=== PATIENT | male | born 1965 ===

== ENCOUNTER 2018-01-21 02:30 | Inpatient (IN) | payer OTHER ==
[2018-01-21 02:31] VITALS: BMI 32.3
[2018-01-21] MEDS ORDERED: Sodium Chloride 0.9% 1,000 ML IV ONE ×2 (02:54→09:31)
--- NOTE | 2018-01-21 02:54 | C.PDOC ---
History Of Present Illness The patient presents to the ED for evaluation of increasing pain and swelling to his left foot and ambulatory dysfunction for the past week. Patient states he stepped on a nail while at work, and has been taking Augmentin and Tramadol. Patient reports he is unable to bear weight to the area. Patient denies fever, chills or purulent material from area. Time Seen by Provider: 01/21/18 02:53 Chief Complaint (Nursing): Lower Extremity Problem/Injury History Per: Patient History/Exam Limitations: no limitations Onset/Duration Of Symptoms: Days Current Symptoms Are (Timing): Still Present Severity: Severe Pain Scale Rating Of: 6 Recent travel outside of the [place]: No Additional History Per: Patient - Ankle/Foot Description Of Injury: Other (stepped on nail ) Past Medical History Reviewed: Historical Data, Nursing Documentation, Vital Signs Vital Signs: Last Vital Signs Temp 98 F 01/21/18 02:47 Pulse 88 01/21/18 02:47 Resp 20 01/21/18 02:47 BP 133/90 01/21/18 02:47 Pulse Ox 97 01/21/18 03:42 - Medical History PMH: No Chronic Diseases Surgical History: No Surg Hx Family History: States: Unknown Family Hx - Social History Hx Alcohol Use: No Hx Substance Use: No - Immunization History Hx Tetanus Toxoid Vaccination: Yes Hx Influenza Vaccination: No Hx Pneumococcal Vaccination: No Review Of Systems Constitutional: Negative for: Fever, Chills Gastrointestinal: Negative for: Nausea Musculoskeletal: Positive for: Foot Pain (left) Skin: Negative for: Rash, Lesions, Jaundice, Bruising, Other (purulent drainage ) Neurological: Negative for: Weakness Psych: Negative for: Anxiety Physical Exam - Physical Exam Appears: Non-toxic, No Acute Distress Skin: Warm, Dry Oral Mucosa: Moist Chest: Symmetrical Cardiovascular: Rhythm Regular Respiratory: No Rales, No Rhonchi, No Wheezing Extremity: Normal ROM, Capillary Refill (less than 2 seconds ), Other (swelling , tenderness, warmth, and mild erythema to base of left great toe, plantar region. ) Extremity: Left: Bony Point Tenderness (great toe), Unable To Bear Weight Pulses: Left Dorsalis Pedis: Normal, Right Dorsalis Pedis: Normal Neurological/Psych: Oriented x3, Normal Speech Gait: With Assistance ED Course And Treatment - Laboratory Results Result Diagrams: 01/21/18 03:22 01/21/18 03:22 O2 Sat by Pulse Oximetry: 97 (on RA) Pulse Ox Interpretation: Normal Progress Note: Bloodwork, urinalysis, CT lower extremity ordered and reviewed. IV Fluids and abx given. spoke with podiatry resident - will come and see the pt in the ed Disposition Discussed With : Isaac Sharif Comment: accepted the pt on his service and took over the care at 6:37AM Doctor Will See Patient In The: ED Counseled Patient/Family Regarding: Studies Performed, Diagnosis - Disposition Referrals: Non [facility] Provider, [Primary Care Provider] - Disposition: HOSPITALIZED Disposition Time: 02:54 Condition: FAIR Forms: [facility] (Bulgarian) - POA Present On Arrival: Falls Or Trauma, Poor Glycemic Control - Clinical Impression Clinical Impression: Cellulitis of foot, Abscess of left great toe - Scribe Statement The provider has reviewed the documentation as recorded by the Scribe (Jolanta Infante) Provider Attestation: All medical record entries made by the Scribe were at my direction and personally dictated by me. I have reviewed the chart and agree that the record accurately reflects my personal performance of the history, physical exam, medical decision making, and the department course for this patient. I have also personally directed, reviewed, and agree with the discharge instructions and disposition. Decision To Admit - Pt Status Changed To: Hospital Disposition Of: Inpatient - Admit Certification Admit to Inpatient:: After my assessment, the patient will require hospitalization for at least two midnights. This is because of the severity of symptoms shown, intensity of services needed, and/or the medical risk in this patient being treated as an outpatient. - InPatient: Physician Admission Certification: I certify that this patient requires 2 or more midnights of care for the following reason:: After my assessment, the patient will require hospitalization for at least two midnights. This is because of the severity of symptoms shown, intensity of services needed, and/or the medical risk in this patient being treated as an outpatient. - . Bed Request Type: Regular Admitting Physician: Isaac Sharif Patient Diagnosis: Cellulitis of foot, Abscess of left great toe
[2018-01-21 03:26] LABS: BASO # 0.1 K/uL (0.0-0.2); BASO % 0.9 % (0.0-2.0); EOS # 0.4 K/uL (0.0-0.7); EOS % 3.2 % (0.0-4.0); HEMOGLOBIN 13.6 g/dL (12.0-18.0); LYMPH # 2.9 K/uL (1.0-4.3); LYMPH % 21.7 % (20.0-40.0); MEAN CORPUSCULAR HEMOGLOBIN 29.7 pg (27.0-31.0); MEAN CORPUSCULAR HGB CONC 34.5 g/dL (33.0-37.0); MEAN PLATELET VOLUME 8.2 fL (7.2-11.7); MONO # 0.9 K/uL (0.0-0.8); MONO % 6.8 % (0.0-10.0); NEUT # 8.9 K/uL (1.8-7.0); NEUT % 67.4 % (50.0-75.0); RBC 4.58 Mil/uL (4.40-5.90); RED CELL DISTRIBUTION WIDTH 13.3 % (11.5-14.5); WHITE BLOOD COUNT 13.2 K/uL (4.8-10.8)
[2018-01-21 03:34] LABS: INR 1.2; PROTHROMBIN TIME 12.9 SECONDS (9.7-12.2)
[2018-01-21 03:48] LABS: ALB/GLOB RATIO 1.3 (1.0-2.1); ALBUMIN 4.7 g/dL (3.5-5.0); ALT/SGPT 40 U/L (21-72); AST/SGOT 24 U/L (17-59); BLOOD UREA NITROGEN 19 mg/dL (9-20); CALCIUM 9.5 mg/dl (8.6-10.4); GFR AFRICAN-AMERICAN > 60; GFR NON-AFRICAN AMERICAN > 60
[2018-01-21 03:52] LABS: VENOUS BLOOD GAS BASE EXCESS 0.3 mmol/L (0.0-2.0); VENOUS BLOOD GAS PCO2 42 mmHg (40-60); VENOUS BLOOD GAS PO2 44 mm/Hg (30-55); VENOUS BLOOD PH 7.39 (7.32-7.43)
[2018-01-21 04:07] LABS: SQUAMOUS EPITHIAL < 1 /hpf (0-5); URINE BILIRUBIN NEGATIVE (NEGATIVE); URINE BLOOD NEGATIVE (NEGATIVE); URINE CLARITY Clear (Clear); URINE COLOR Yellow (YELLOW); URINE GLUCOSE (UA) NORMAL (Normal); URINE LEUKOCYTE ESTERASE NEG Leu/uL (Negative); URINE PROTEIN NEGATIVE (NEGATIVE); URINE UROBILINOGEN NORMAL mg/dL (0.2-1.0)
[2018-01-21] MEDS ORDERED: Piperacillin/Tazobact 3.375 gm 100 ML IVPB STA (06:25)
[2018-01-21] MEDS ORDERED: Vancomycin 1 gm/NS 200 ml 1 GM/200 ML BAG IVPB STA (06:28)
[2018-01-21] MEDS ORDERED: Piperacill/Tazo 3.375gm in Dex 3.375 GM/50 ML BAG IVPB STA (06:29)
[2018-01-21] MEDS ORDERED: Vancomycin 1 GM 1 GM/250 ML BAG IVPB SCH (06:30)
--- NOTE | 2018-01-21 07:14 | CP.PCM.CON ---
History of Present Illness - History of Present Illness History of Present Illness: 52 y/o male with no significant PMHx seen at bedside today in ED for left foot redness and swelling with pain to the big toe joint. He states that 10 days ago he stepped on a nail. Admits to going to an urgent care facility 2 days after, where he was prescribed Augmentin and Toradol. States he took these medications but has not noticed improvement. States that the nail was never stuck inside his foot, just pierced the bottom of it. Since then, denies noting any pus from the foot or any other openings. Says that the wound area healed, but he has had persistent swelling and pain. Denies F/C/N/V/CP/SOB PSH: denies ALL: denies SocHx: social beer drinker; denies cigarette or drug use Review of Systems - Review of Systems All systems: reviewed and no additional remarkable complaints except (per HPI) Past Patient History - Infectious Disease Hx of Infectious Diseases: None - Past Social History Smoking Status: Never Smoked - PSYCHIATRIC Hx Substance Use: No - SURGICAL HISTORY Hx Surgeries: Yes Other/Comment: r ankle repair - ANESTHESIA Hx Anesthesia: Yes Hx Anesthesia Reactions: No Meds Allergies/Adverse Reactions: Allergies Allergy/AdvReac Type Severity Reaction Status Date / Time No Known Allergies Allergy Verified 01/21/18 02:45 - Medications Medications: Current Medications Vancomycin/Sodium Chloride (Vancomycin 1 Gm/Ns 200 Ml) 1 gm in 200 mls @ 166.667 mls/hr IVPB STAT STA PRN Reason: Protocol Stop: 01/21/18 07:39 Last Admin: 01/21/18 06:57 Dose: 166.667 mls/hr Physical Exam - Constitutional Appears: Well, Non-toxic, No Acute Distress - Extremities Exam Additional comments: Left lower extremity focused exam: Vasc: DP/PT pulses 2/4. Temperature gradient warm to warm. CFT < 3 sec to all digits. Nonpitting pedal edema noted to entirety of forefoot, increased around 1st MPJ Derm: Diffuse erythema to medial aspect of forefoot surrounding 1st MPJ. Fully healed puncture wound noted to plantar aspect of 1st MPJ. No open lesions, no ecchymosis, no drainage Neuro: Protective sensation grossly intact Ortho: Moderate tenderness to palpation of left foot 1st MPJ and hallux. Tenderness elicited upon mobilization and distraction of 1st MPJ. - Neurological Exam Neurological exam: Alert, Oriented x3 - Psychiatric Exam Psychiatric exam: Normal Affect, Normal Mood Results - Vital Signs Recent Vital Signs: Last Vital Signs Temp 98 F 01/21/18 02:47 Pulse 88 01/21/18 02:47 Resp 20 01/21/18 02:47 BP 133/90 01/21/18 02:47 Pulse Ox 97 01/21/18 06:40 - Labs Result Diagrams: 01/21/18 03:22 01/21/18 03:22 Labs: Laboratory Results - last 24 hr 01/21/18 01/21/18 01/21/18 03:22 03:22 03:22 WBC 13.2 H RBC 4.58 Hgb 13.6 Hct 39.4 MCV 86.0 MCH 29.7 MCHC 34.5 RDW 13.3 Plt Count 366 MPV 8.2 Neut % (Auto) 67.4 Lymph % (Auto) 21.7 [place] % (Auto) 6.8 Eos % (Auto) 3.2 Baso % (Auto) 0.9 Neut # (Auto) 8.9 H Lymph # (Auto) 2.9 [place] # (Auto) 0.9 H Eos # (Auto) 0.4 Baso # (Auto) 0.1 PT 12.9 H INR 1.2 APTT 35 H pO2 VBG pH VBG pCO2 VBG HCO3 VBG Total CO2 VBG O2 Sat (Calc) VBG Base Excess VBG Potassium Glucose Lactate Sodium 144 Potassium 3.8 Chloride 106 Carbon Dioxide 26 Anion Gap 17 BUN 19 Creatinine 1.0 Est GFR ( Amer) > 60 Est GFR (Non-Af Amer) > 60 Random Glucose 120 H Calcium 9.5 Total Bilirubin 0.4 AST 24 ALT 40 Alkaline Phosphatase 108 Total Protein 8.2 Albumin 4.7 Globulin 3.5 Albumin/Globulin Ratio 1.3 Venous Blood Potassium Urine Color Urine Clarity Urine pH Ur Specific [place] Urine Protein Urine Glucose (UA) Urine Ketones Urine Blood Urine Nitrate Urine Bilirubin Urine Urobilinogen Ur Leukocyte Esterase Urine WBC (Auto) Urine RBC (Auto) Ur Squamous Epith Cells 01/21/18 01/21/18 03:46 04:03 WBC RBC Hgb Hct MCV MCH MCHC RDW Plt Count MPV Neut % (Auto) Lymph % (Auto) [place] % (Auto) Eos % (Auto) Baso % (Auto) Neut # (Auto) Lymph # (Auto) [place] # (Auto) Eos # (Auto) Baso # (Auto) PT INR APTT pO2 44 VBG pH 7.39 VBG pCO2 42 VBG HCO3 24.7 VBG Total CO2 26.7 VBG O2 Sat (Calc) 83.2 H VBG Base Excess 0.3 VBG Potassium 3.6 Glucose 107 Lactate 0.9 Sodium 141.0 Potassium Chloride 109.0 H Carbon Dioxide Anion Gap BUN Creatinine Est GFR ( Amer) Est GFR (Non-Af Amer) Random Glucose Calcium Total Bilirubin AST ALT Alkaline Phosphatase Total Protein Albumin Globulin Albumin/Globulin Ratio Venous Blood Potassium 3.6 Urine Color Yellow Urine Clarity Clear Urine pH 5.0 Ur Specific [place] 1.020 Urine Protein Negative Urine Glucose (UA) Normal Urine Ketones Negative Urine Blood Negative Urine Nitrate Negative Urine Bilirubin Negative Urine Urobilinogen Normal Ur Leukocyte Esterase Neg Urine WBC (Auto) < 1 Urine RBC (Auto) < 1 Ur Squamous Epith Cells < 1 Assessment & Plan - Assessment and Plan (Free Text) Assessment: 52 y/o male with left foot 1st MPJ joint effusion vs abscess, secondary to puncture wound Plan: Pt seen and evaluated at bedside Discussed plan with attending Dr. Carter Leukocytosis noted LLE CT reveals fluid collection at 1st MPJ LLE MRI reveals abscess/joint effusion at 1st MPJ with reactive signal changes noted to base of proximal phalanx as well as 1st metatarsal head- acute infectious changes; osteomyelitis or septic joint cannot be excluded Discussed risks, benefits, alternatives and complications with patient regarding joint aspiration Pt expressed understanding and signed verbal consent 6cc 1% Lidocaine plain injected proximal to left foot 1st MPJ Joint fluid aspiration performed with 19 gauge needle - sent for culture and sensitivity Await cultures for targeted abx therapy Continue current abx regimen of IV Vancomycin, Zosyn Continue current pain management as per primary team Will continue to follow patient
[2018-01-21] MEDS ORDERED: Sodium Chloride 0.9% 1,000 ML IV SCH (08:30)
--- NOTE | 2018-01-21 08:32 | CP.PCM.HP ---
<Abbie Briseno - Last Filed: 01/21/18 19:48> History of Present Illness - History of Present Illness History of Present Illness: Pt is a 52 yo Male w/ no PMHx who presents to the ED with complaints of LLE pain. Patient reports on 01/11 he stepped on a nail at work that went through his boot and into his foot. He followed up at [facility] in [place] for continued pain and was prescribed Augmentin 875/125, Tramadol 500mg Q12, and Ibuprofen 600mg Q12. He also received a Tdap vax, confirmed by clinic. Patient reports his left foot is throbbing in pain, swelling to the foot, and redness. He denies any drainage from puncture site. Patient reports the pain is unbearable he has not been able to stand or walk on it. He reportsan episode of NBNB emesis yesterday after taking more of the Tramadol and Toradol than prescribed for the pain. He also reports 2 days of loose stools, no hematochezia. Patient denies chest pain, SOB, numbness, tingling, cold extremities. PMHx: Denies PSHx: Denies All: Denies Meds: Denies Fam Hx: Denies Soc Hx: Denies alcohol, tobacco, drug use. Works operating machinery and heavy equipment. Lives with family Present on Admission - Present on Admission Any Indicators Present on Admission: No Review of Systems - Constitutional Constitutional: Fatigue. absent: Anorexia - EENT Eyes: absent: Change in Vision Ears: absent: Disequilibrium Nose/Mouth/Throat: absent: Nasal Congestion - Cardiovascular Cardiovascular: absent: Chest Pain, Dyspnea, Lightheadedness, Orthopnea, Syncope - Respiratory Respiratory: absent: Cough, Dyspnea, Chest Congestion - Gastrointestinal Gastrointestinal: Loose Stools (x2 days), Vomiting (NBNB x1). absent: Abdominal Pain - Genitourinary Genitourinary: absent: Dysuria - Musculoskeletal Musculoskeletal: Abnormal Gait, Deformity, Joint Swelling. absent: Numbness, Tingling - Integumentary Integumentary: Swelling (LLE), Wounds - Neurological Neurological: absent: Numbness, Paresthesias, Sensory Deficit, Tingling Past Patient History - Infectious Disease Hx of Infectious Diseases: None - Past Social History Smoking Status: Never Smoked - PSYCHIATRIC Hx Substance Use: No - SURGICAL HISTORY Hx Surgeries: Yes Other/Comment: r ankle repair - ANESTHESIA Hx Anesthesia: Yes Hx Anesthesia Reactions: No Meds Allergies/Adverse Reactions: Allergies Allergy/AdvReac Type Severity Reaction Status Date / Time No Known Allergies Allergy Verified 01/21/18 02:45 Physical Exam - Constitutional Appears: Non-toxic, No Acute Distress - Head Exam Head Exam: ATRAUMATIC, NORMAL INSPECTION, NORMOCEPHALIC - Eye Exam Eye Exam: EOMI, Normal appearance Pupil Exam: NORMAL ACCOMODATION, PERRL - ENT Exam ENT Exam: Mucous Membranes Moist, Normal Oropharynx - Neck Exam Neck exam: Positive for: Full Rom, Normal Inspection. Negative for: Lymphadenopathy - Respiratory Exam Respiratory Exam: Clear to Auscultation Bilateral, NORMAL BREATHING PATTERN. absent: Accessory Muscle Use, Rhonchi, Wheezes, Respiratory Distress - Cardiovascular Exam Cardiovascular Exam: REGULAR RHYTHM, +S1, +S2. absent: Tachycardia, Systolic Murmur - GI/Abdominal Exam GI & Abdominal Exam: Normal Bowel Sounds, Soft. absent: Distended, Rebound, Tenderness - Extremities Exam Extremities exam: Positive for: joint swelling (LLE diffuse swelling around MTPs ), normal capillary refill, pedal edema, tenderness, pedal pulses present. Negative for: calf tenderness, full ROM (limited ROM in LLE) - Back Exam Back exam: NORMAL INSPECTION - Neurological Exam Neurological exam: Abnormal Gait (unable to bear weight), Alert, Oriented x3 - Psychiatric Exam Psychiatric exam: Normal Affect, Normal Mood - Skin Skin Exam: Erythema (LLE), Warm Results - Vital Signs Recent Vital Signs: Last Vital Signs Temp 98 F 01/21/18 07:26 Pulse 66 01/21/18 07:26 Resp 18 01/21/18 07:26 BP 102/67 01/21/18 07:26 Pulse Ox 96 01/21/18 07:26 - Labs Result Diagrams: 01/21/18 03:22 01/21/18 03:22 Labs: Laboratory Results - last 24 hr 01/21/18 01/21/18 01/21/18 03:22 03:22 03:22 WBC 13.2 H RBC 4.58 Hgb 13.6 Hct 39.4 MCV 86.0 MCH 29.7 MCHC 34.5 RDW 13.3 Plt Count 366 MPV 8.2 Neut % (Auto) 67.4 Lymph % (Auto) 21.7 [place] % (Auto) 6.8 Eos % (Auto) 3.2 Baso % (Auto) 0.9 Neut # (Auto) 8.9 H Lymph # (Auto) 2.9 [place] # (Auto) 0.9 H Eos # (Auto) 0.4 Baso # (Auto) 0.1 PT 12.9 H INR 1.2 APTT 35 H pO2 VBG pH VBG pCO2 VBG HCO3 VBG Total CO2 VBG O2 Sat (Calc) VBG Base Excess VBG Potassium Glucose Lactate Sodium 144 Potassium 3.8 Chloride 106 Carbon Dioxide 26 Anion Gap 17 BUN 19 Creatinine 1.0 Est GFR ( Amer) > 60 Est GFR (Non-Af Amer) > 60 Random Glucose 120 H Calcium 9.5 Total Bilirubin 0.4 AST 24 ALT 40 Alkaline Phosphatase 108 Total Protein 8.2 Albumin 4.7 Globulin 3.5 Albumin/Globulin Ratio 1.3 Venous Blood Potassium Urine Color Urine Clarity Urine pH Ur Specific [place] Urine Protein Urine Glucose (UA) Urine Ketones Urine Blood Urine Nitrate Urine Bilirubin Urine Urobilinogen Ur Leukocyte Esterase Urine WBC (Auto) Urine RBC (Auto) Ur Squamous Epith Cells 01/21/18 01/21/18 03:46 04:03 WBC RBC Hgb Hct MCV MCH MCHC RDW Plt Count MPV Neut % (Auto) Lymph % (Auto) [place] % (Auto) Eos % (Auto) Baso % (Auto) Neut # (Auto) Lymph # (Auto) [place] # (Auto) Eos # (Auto) Baso # (Auto) PT INR APTT pO2 44 VBG pH 7.39 VBG pCO2 42 VBG HCO3 24.7 VBG Total CO2 26.7 VBG O2 Sat (Calc) 83.2 H VBG Base Excess 0.3 VBG Potassium 3.6 Glucose 107 Lactate 0.9 Sodium 141.0 Potassium Chloride 109.0 H Carbon Dioxide Anion Gap BUN Creatinine Est GFR ( Amer) Est GFR (Non-Af Amer) Random Glucose Calcium Total Bilirubin AST ALT Alkaline Phosphatase Total Protein Albumin Globulin Albumin/Globulin Ratio Venous Blood Potassium 3.6 Urine Color Yellow Urine Clarity Clear Urine pH 5.0 Ur Specific [place] 1.020 Urine Protein Negative Urine Glucose (UA) Normal Urine Ketones Negative Urine Blood Negative Urine Nitrate Negative Urine Bilirubin Negative Urine Urobilinogen Normal Ur Leukocyte Esterase Neg Urine WBC (Auto) < 1 Urine RBC (Auto) < 1 Ur Squamous Epith Cells < 1 Assessment & Plan - Assessment and Plan (Free Text) Assessment: 52 yo m w/ no prior medical history presents with pain/swelling of LLE s/p trauma with foreign object. Septic arthritis/Osteomyelitis of 1st MTP joint -CT LLE(01/21) showed large effusion surrounding 1st MTP joint and diffuse soft tissue edema of dorsum of foot. No foreign body identified -MRI LLE(01/21) suspects septic joint vs osteomyelitis of 1st MTP joint -joint aspirated by podiatry -f/u aspirate cx -ESR 68 -vanco 1g Q12(01/21) -f/u vanco trough 01/22 @ 18:30 -zosyn 3.375gm Q6 (01/21) -[facility] [place] confirmed pt received Tdap -Toradol 15mg/30mg PRN pain -Podiatry consult Dr. Carter Nausea/vomiting, loose stool -2/2 to meds -NS @125 x1L -continue to monitor -zofran 4mg Q6 PRN Ppx -protonix 40 PO -heparin 5000 sc Q8 Lactobacillus PO Decision To Admit - Pt Status Changed To: Hospital Disposition Of: Inpatient - Admit Certification Admit to Inpatient:: After my assessment, the patient will require hospitalization for at least two midnights. This is because of the severity of symptoms shown, intensity of services needed, and/or the medical risk in this patient being treated as an outpatient. - InPatient: Physician Admission Certification:: Patient will need inpatient care - . Bed Request Type: Regular <Hugo Infante - Last Filed: 01/23/18 21:52> Results - Vital Signs Recent Vital Signs: Last Vital Signs Temp 98.6 F 01/23/18 15:00 Pulse 62 01/23/18 15:00 Resp 20 01/23/18 15:00 BP 117/79 01/23/18 15:00 Pulse Ox 89 L 01/23/18 15:00 - Labs Result Diagrams: 01/23/18 05:38 01/23/18 05:38 Labs: Laboratory Results - last 24 hr 01/23/18 01/23/18 01/23/18 05:38 05:38 05:38 WBC 11.1 H RBC 4.06 L Hgb 12.2 Hct 35.0 MCV 86.1 MCH 30.0 MCHC 34.8 RDW 13.1 Plt Count 345 MPV 8.1 Neut % (Auto) 57.5 Lymph % (Auto) 29.9 [place] % (Auto) 7.1 Eos % (Auto) 4.9 H Baso % (Auto) 0.6 Neut # (Auto) 6.4 Lymph # (Auto) 3.3 [place] # (Auto) 0.8 Eos # (Auto) 0.5 Baso # (Auto) 0.1 Sodium 143 Potassium 3.9 Chloride 106 Carbon Dioxide 24 Anion Gap 16 BUN 18 Creatinine 1.0 Est GFR ( Amer) > 60 Est GFR (Non-Af Amer) > 60 Random Glucose 108 Calcium 8.9 Phosphorus 4.2 Magnesium 2.0 Total Bilirubin 0.3 AST 29 ALT 47 Alkaline Phosphatase 101 Total Protein 7.3 Albumin 4.0 Globulin 3.3 Albumin/Globulin Ratio 1.2 Vancomycin Trough 6.7 01/23/18 19:53 WBC RBC Hgb Hct MCV MCH MCHC RDW Plt Count MPV Neut % (Auto) Lymph % (Auto) [place] % (Auto) Eos % (Auto) Baso % (Auto) Neut # (Auto) Lymph # (Auto) [place] # (Auto) Eos # (Auto) Baso # (Auto) Sodium Potassium Chloride Carbon Dioxide Anion Gap BUN Creatinine Est GFR ( Amer) Est GFR (Non-Af Amer) Random Glucose Calcium Phosphorus Magnesium Total Bilirubin AST ALT Alkaline Phosphatase Total Protein Albumin Globulin Albumin/Globulin Ratio Vancomycin Trough 22.7 H Attending/Attestation - Attestation I have personally seen and examined this patient.: Yes I have fully participated in the care of the patient.: Yes I have reviewed all pertinent clinical information: Yes Notes (Text): 01/23/18 21:51 This is a late entry. History, physical, assessment and plan, and all orders were gone over in detail with resident Dr. Briseno. Hugo Infante D.O.
--- NOTE | 2018-01-21 09:54 | CT ---
Date of service: 01/21/2018 PROCEDURE: CT of the left foot without contrast. HISTORY: ankle foot, after nail went thru, pain COMPARISON: None available. TECHNIQUE: Contiguous axial images of the left foot were obtained. Coronal and sagittal reformats were generated. This CT exam was performed using one or more of the following dose reduction techniques: Automated exposure control, adjustment of the mA and/or kV according to patient size, and/or use of iterative reconstruction technique. FINDINGS: BONES: Bone alignment and mineralization are normal. There is no acute displaced fracture or bone destruction. There is moderate joint effusion at the 1st MTP joint. The remaining joint spaces are preserved. SOFT TISSUES: The periarticular muscles are normal. There is diffuse soft tissue swelling in the foot and minimal subcutaneous fluid in the forefoot. IMPRESSION: No acute fracture or bone destruction. Moderate the joint effusion at the 1st MTP joint which may be posttraumatic in etiology however superimposed infection cannot be excluded. Soft tissue swelling in the foot. A preliminary report was provided by [employer] services.
[2018-01-21] MEDS ORDERED: Vancomycin 1 gm/NS 200 ml 1 GM/200 ML BAG IVPB SCH (10:00)
[2018-01-21] MEDS ORDERED: Gadodiamide 287 MG/ML VIAL (15ML) IV ONE (10:45)
[2018-01-21] MEDS: Lactobacillus Acidophilus 500 MU Cap PO SCH ×2 (11:20→17:19)
[2018-01-21] MEDS: Pantoprazole 40 mg EC Tab PO SCH (11:20)
[2018-01-21] MEDS ORDERED: Piperacill/Tazo 3.375gm in Dex 3.375 GM/50 ML BAG IVPB SCH (12:00)
[2018-01-21] MEDS: Piperacill/Tazo 3.375gm in Dex 3.375 GM/50 ML BAG IVPB SCH ×2 (13:07→18:00)
--- NOTE | 2018-01-21 13:59 | MRI ---
MRI left forefoot History: Injury. Infection. Comparison: CT scan dated 01/21/2018 Technique: Multi-echo multiplanar sequences were performed through the left forefoot without the use of intravenous contrast. Findings: Prominent enhancing fluid distension of the 1st MTP joint space. In addition, there is reactive signal change with patchy decreased T1 signal, increased STIR signal, and patchy post-contrast enhancement noted at the head of the 1st metatarsal bone as well as the base of the 1st proximal phalanx. These findings are concerning for acute infectious and or inflammatory changes. Underlying septic arthritis with developing acute osteomyelitis cannot be excluded. Clinical correlation. Additional mild reactive edema with additional signal changes noted within the medial sesamoid bone. Hallux valgus deformity. Prominent reticulation and edema within the dorsal soft tissues of the midfoot. Mild tenosynovitis of the flexor hallucis tendon sheath. Mild increased signal at the level of the Lisfranc ligament which may represent a low grade sprain and or mild partial tearing. Clinical correlation. Impression: Prominent enhancing fluid distension of the 1st MTP joint space. In addition, there is reactive signal change with patchy decreased T1 signal, increased STIR signal, and patchy post-contrast enhancement noted at the head of the 1st metatarsal bone as well as the base of the 1st proximal phalanx. These findings are concerning for acute infectious and or inflammatory changes. Underlying septic arthritis with developing acute osteomyelitis cannot be excluded. Clinical correlation. Additional mild reactive edema with additional signal changes noted within the medial sesamoid bone. Hallux valgus deformity. Prominent reticulation and edema within the dorsal soft tissues of the midfoot. Mild tenosynovitis of the flexor hallucis tendon sheath. Mild increased signal at the level of the Lisfranc ligament which may represent a low grade sprain and or mild partial tearing. Clinical correlation. These findings were discussed with Dr. Briseno at 1:50 p.m. on 01/21/2018.
[2018-01-21] MEDS ORDERED: Lidocaine 1% Inj (20ml) INFIL ONE (17:04)
[2018-01-21] MEDS: Vancomycin 1 gm/NS 200 ml 1 GM/200 ML BAG IVPB SCH (18:30)
[2018-01-22] MEDS: Piperacill/Tazo 3.375gm in Dex 3.375 GM/50 ML BAG IVPB SCH ×4 (00:30→18:49)
[2018-01-22] MEDS: Vancomycin 1 gm/NS 200 ml 1 GM/200 ML BAG IVPB SCH ×2 (06:20→19:27)
[2018-01-22 07:42] LABS: BASO # 0.1 K/uL (0.0-0.2); BASO % 0.5 % (0.0-2.0); EOS # 0.4 K/uL (0.0-0.7); EOS % 4.1 % (0.0-4.0); HEMOGLOBIN 11.9 g/dL (12.0-18.0); LYMPH # 3.3 K/uL (1.0-4.3); LYMPH % 30.9 % (20.0-40.0); MEAN CORPUSCULAR HEMOGLOBIN 30.2 pg (27.0-31.0); MEAN CORPUSCULAR HGB CONC 34.8 g/dL (33.0-37.0); MONO # 0.8 K/uL (0.0-0.8); MONO % 7.8 % (0.0-10.0); NEUT % 56.7 % (50.0-75.0); RBC 3.93 Mil/uL (4.40-5.90); RED CELL DISTRIBUTION WIDTH 13.5 % (11.5-14.5); WHITE BLOOD COUNT 10.6 K/uL (4.8-10.8)
[2018-01-22 08:04] LABS: ALB/GLOB RATIO 1.1 (1.0-2.1); ALBUMIN 3.7 g/dL (3.5-5.0); ALT/SGPT 42 U/L (21-72); AST/SGOT 29 U/L (17-59); BLOOD UREA NITROGEN 16 mg/dL (9-20); GFR AFRICAN-AMERICAN > 60; GFR NON-AFRICAN AMERICAN > 60
[2018-01-22] MEDS: Pantoprazole 40 mg EC Tab PO SCH (09:11)
[2018-01-22] MEDS: Lactobacillus Acidophilus 500 MU Cap PO SCH ×2 (09:11→17:36)
--- NOTE | 2018-01-22 10:27 | CP.PCM.PN ---
<Shant Barrios - Last Filed: 01/22/18 21:42> Subjective - Date & Time of Evaluation Date of Evaluation: 01/22/18 Time of Evaluation: 15:32 - Subjective Subjective: PGY 3 Med Progress Note- Dr. Ruma Infante's service Patient seen and examined in no acute distress. Patient states that he has pain to the affected left foot particularly on the dorsal surfaces. Patient denies other associated symptoms of nausea, vomiting, chest pain or diarrhea at this time. Objective - Vital Signs/Intake and Output Vital Signs (last 24 hours): Temp Pulse Resp BP Pulse Ox 98.7 F 61 20 110/69 97 01/22/18 08:13 01/22/18 08:13 01/22/18 08:13 01/22/18 08:13 01/22/18 08:13 Intake and Output: 01/22/18 01/22/18 06:59 18:59 Intake Total 600 Balance 600 - Medications Medications: Current Medications Heparin Sodium (Porcine) (Heparin) 5,000 units SC Q8 [facility] Last Admin: 01/22/18 05:30 Dose: 5,000 units Piperacillin Sod/Tazobactam Sod (Zosyn 3.375 Gm Iv Premix) 3.375 gm in 50 mls @ 100 mls/hr IVPB Q6H [facility] PRN Reason: Protocol Last Admin: 01/22/18 06:00 Dose: 100 mls/hr Vancomycin/Sodium Chloride (Vancomycin 1 Gm/Ns 200 Ml) 1 gm in 200 mls @ 133.333 mls/hr IVPB Q12H [facility] PRN Reason: Protocol Stop: 01/26/18 19:01 Last Admin: 01/22/18 06:20 Dose: 133.333 mls/hr Ketorolac Tromethamine (Toradol) 15 mg IVP Q6 PRN PRN Reason: Pain, moderate (4-7) Ketorolac Tromethamine (Toradol) 30 mg IVP Q6 PRN PRN Reason: Pain, severe (8-10) Last Admin: 01/22/18 09:12 Dose: 30 mg Lactobacillus Acidophilus (Bacid Acidophilus) 1 cap PO BID [facility] Last Admin: 01/22/18 09:11 Dose: 1 cap Ondansetron HCl (Zofran Inj) 4 mg IVP Q6 PRN PRN Reason: Nausea/Vomiting Pantoprazole Sodium (Protonix Ec Tab) 40 mg PO DAILY [facility] Last Admin: 01/22/18 09:11 Dose: 40 mg Pneumococcal Polyvalent Vaccine (Pneumovax 23 Vaccine) 0.5 ml IM .ONCE ONE Stop: 01/23/18 10:01 - Labs Labs: 01/22/18 07:24 01/22/18 07:24 PT 12.9 SECONDS (9.7-12.2) H 01/21/18 03:22 INR 1.2 01/21/18 03:22 APTT 35 SECONDS (21-34) H 01/21/18 03:22 - Constitutional Appears: Non-toxic, No Acute Distress - Head Exam Head Exam: ATRAUMATIC, NORMAL INSPECTION, NORMOCEPHALIC - Eye Exam Eye Exam: EOMI, Normal appearance, PERRL Pupil Exam: NORMAL ACCOMODATION - ENT Exam ENT Exam: Mucous Membranes Moist - Neck Exam Neck Exam: Full ROM - Respiratory Exam Respiratory Exam: NORMAL BREATHING PATTERN. absent: Wheezes - Cardiovascular Exam Cardiovascular Exam: +S1, +S2 - GI/Abdominal Exam GI & Abdominal Exam: Soft, Normal Bowel Sounds - Extremities Exam Extremities Exam: Normal Capillary Refill, Pedal Edema, Tenderness. absent: Full ROM (some limitations with range of motion of phalangeal digits secondary to pain) Additional comments: mildly diffuse erythema noted as well of left phalangeal digits - Back Exam Back Exam: Full ROM - Neurological Exam Neurological Exam: Alert, Awake, CN II-XII Intact, Oriented x3 - Psychiatric Exam Psychiatric exam: Normal Affect, Normal Mood - Skin Skin Exam: Dry, Warm Assessment and Plan - Assessment and Plan (Free Text) Assessment: 52yo M with no prior medical history presents with septic arthritis of LLE s/p trauma with foreign object. Septic arthritis/Osteomyelitis of 1st MTP joint -CT LLE(01/21) showed large effusion surrounding 1st MTP joint and diffuse soft tissue edema of dorsum of foot. No foreign body identified -MRI LLE(01/21) abscess/joint effusion at 1st MPJ with reactive signal changes noted to base of proximal phalanx as well as 1st metatarsal head- Acute infectious changes; osteomyelitis or septic joint cannot be excluded. Refer to complete report -Joint fluid aspiration performed by podiatry. Gram stain negative. F/U fluid studies. F/U podiatry (Dr. Carter) recommendations -ESR 68 (elevated) -Vancomycin 1g Q12(Started 01/21) -F/U Vanco trough 01/22 @ 18:30 -Zosyn 3.375gm Q6 (Started 01/21) -On Bacid probiotics -[facility] [place] confirmed pt received Tdap -Toradol PRN pain Nausea/vomiting -Zofran 4mg Q6 PRN -Continue to monitor Prophylaxis -Protonix 40mg PO -Heparin 5000 SC Q8 <Hugo Infante - Last Filed: 01/23/18 21:51> Objective - Vital Signs/Intake and Output Vital Signs (last 24 hours): Temp Pulse Resp BP Pulse Ox 98.6 F 62 20 117/79 89 L 01/23/18 15:00 01/23/18 15:00 01/23/18 15:00 01/23/18 15:00 01/23/18 15:00 Intake and Output: 01/23/18 01/24/18 18:59 06:59 Intake Total 400 Output Total 2000 Balance -1600 - Medications Medications: Current Medications Heparin Sodium (Porcine) (Heparin) 5,000 units SC Q8 [facility] Last Admin: 01/23/18 21:37 Dose: 5,000 units Piperacillin Sod/Tazobactam Sod (Zosyn 3.375 Gm Iv Premix) 3.375 gm in 50 mls @ 100 mls/hr IVPB Q6H [facility] PRN Reason: Protocol Last Admin: 01/23/18 19:19 Dose: 100 mls/hr Vancomycin HCl 1 gm/ Sodium (Chloride) 200 mls @ 166.7 mls/hr IVPB Q12H [facility] PRN Reason: Protocol Ketorolac Tromethamine (Toradol) 15 mg IVP Q6 PRN PRN Reason: Pain, moderate (4-7) Ketorolac Tromethamine (Toradol) 30 mg IVP Q6 PRN PRN Reason: Pain, severe (8-10) Last Admin: 01/23/18 10:39 Dose: 30 mg Lactobacillus Acidophilus (Bacid Acidophilus) 1 cap PO BID [facility] Last Admin: 01/23/18 17:23 Dose: 1 cap Ondansetron HCl (Zofran Inj) 4 mg IVP Q6 PRN PRN Reason: Nausea/Vomiting Pantoprazole Sodium (Protonix Ec Tab) 40 mg PO DAILY [facility] Last Admin: 01/23/18 09:16 Dose: 40 mg - Labs Labs: 01/23/18 05:38 01/23/18 05:38 PT 12.9 SECONDS (9.7-12.2) H 01/21/18 03:22 INR 1.2 01/21/18 03:22 APTT 35 SECONDS (21-34) H 01/21/18 03:22 Attending/Attestation - Attestation I have personally seen and examined this patient.: Yes I have fully participated in the care of the patient.: Yes I have reviewed all pertinent clinical information, including history, physical exam and plan: Yes Notes (Text): 01/23/18 21:50 This is a late entry. Care of this patient was discussed with resident Dr. Barrios. Hugo Infante D.O.
--- NOTE | 2018-01-22 18:37 | CP.PCM.PN ---
Subjective - Date & Time of Evaluation Date of Evaluation: 01/22/18 Time of Evaluation: 18:34 - Subjective Subjective: Podiatry progress note for Dr. Carter, 62 y/o male with no significant PMHx seen at bedside for left foot redness and swelling with pain to the big toe joint. He states the pain has decreased after aspiration of the fluid from his joint yesterday. Patient states it is still minimally painful. Patients dressing is seen to be dry, clean and intact Denies F/C/N/V/CP/SOB Objective - Vital Signs/Intake and Output Vital Signs (last 24 hours): Temp Pulse Resp BP Pulse Ox 98.0 F 69 20 135/87 96 01/22/18 16:30 01/22/18 16:30 01/22/18 16:30 01/22/18 16:30 01/22/18 16:30 Intake and Output: 01/22/18 01/22/18 06:59 18:59 Intake Total 600 Output Total 450 Balance 600 -450 - Medications Medications: Current Medications Heparin Sodium (Porcine) (Heparin) 5,000 units SC Q8 [facility] Last Admin: 01/22/18 13:17 Dose: 5,000 units Piperacillin Sod/Tazobactam Sod (Zosyn 3.375 Gm Iv Premix) 3.375 gm in 50 mls @ 100 mls/hr IVPB Q6H [facility] PRN Reason: Protocol Last Admin: 01/22/18 13:20 Dose: 100 mls/hr Vancomycin/Sodium Chloride (Vancomycin 1 Gm/Ns 200 Ml) 1 gm in 200 mls @ 133.333 mls/hr IVPB Q12H [facility] PRN Reason: Protocol Stop: 01/26/18 19:01 Last Admin: 01/22/18 06:20 Dose: 133.333 mls/hr Ketorolac Tromethamine (Toradol) 15 mg IVP Q6 PRN PRN Reason: Pain, moderate (4-7) Ketorolac Tromethamine (Toradol) 30 mg IVP Q6 PRN PRN Reason: Pain, severe (8-10) Last Admin: 01/22/18 15:54 Dose: 30 mg Lactobacillus Acidophilus (Bacid Acidophilus) 1 cap PO BID [facility] Last Admin: 01/22/18 17:36 Dose: 1 cap Ondansetron HCl (Zofran Inj) 4 mg IVP Q6 PRN PRN Reason: Nausea/Vomiting Pantoprazole Sodium (Protonix Ec Tab) 40 mg PO DAILY [facility] Last Admin: 01/22/18 09:11 Dose: 40 mg Pneumococcal Polyvalent Vaccine (Pneumovax 23 Vaccine) 0.5 ml IM .ONCE ONE Stop: 01/23/18 10:01 - Labs Labs: 01/22/18 07:24 01/22/18 07:24 PT 12.9 SECONDS (9.7-12.2) H 01/21/18 03:22 INR 1.2 01/21/18 03:22 APTT 35 SECONDS (21-34) H 01/21/18 03:22 - Constitutional Appears: Well, Non-toxic, No Acute Distress - Head Exam Head Exam: ATRAUMATIC, NORMOCEPHALIC - Extremities Exam Additional comments: Left lower extremity focused exam: Vasc: DP/PT pulses 2/4. Temperature gradient warm to warm. CFT < 3 sec to all digits. Nonpitting pedal edema noted to entirety of forefoot, increased around 1st MPJ Derm: Diffuse minimal erythema to medial aspect of forefoot surrounding 1st MPJ. Fully healed puncture wound noted to plantar aspect of 1st MPJ. No open lesions, no ecchymosis, no drainage Neuro: Protective sensation grossly intact Ortho: Moderate tenderness to palpation of left foot 1st MPJ and hallux. Tenderness elicited upon mobilization and distraction of 1st MPJ. Assessment and Plan - Assessment and Plan (Free Text) Assessment: 52 y/o male with left foot 1st MPJ joint effusion vs abscess, secondary to puncture wound Plan: Pt seen and evaluated at bedside Discussed plan with attending Dr. Carter Chart, labs and vitals reviewed; WBC 10.[address] reveals fluid collection at 1st MPJ LLE MRI reveals abscess/joint effusion at 1st MPJ with reactive signal changes noted to base of proximal phalanx as well as 1st metatarsal head- acute infectious changes; osteomyelitis or septic joint cannot be excluded Joint aspiration cultures pending. Continue current abx regimen of IV Vancomycin, Zosyn Continue current pain management as per primary team Will continue to follow patient
[2018-01-23] MEDS: Piperacill/Tazo 3.375gm in Dex 3.375 GM/50 ML BAG IVPB SCH ×4 (00:10→19:19)
[2018-01-23 05:41] LABS: BASO # 0.1 K/uL (0.0-0.2); BASO % 0.6 % (0.0-2.0); EOS # 0.5 K/uL (0.0-0.7); EOS % 4.9 % (0.0-4.0); HEMOGLOBIN 12.2 g/dL (12.0-18.0); LYMPH # 3.3 K/uL (1.0-4.3); LYMPH % 29.9 % (20.0-40.0); MEAN CELL VOLUME 86.1 fL (80.0-94.0); MEAN CORPUSCULAR HGB CONC 34.8 g/dL (33.0-37.0); MEAN PLATELET VOLUME 8.1 fL (7.2-11.7); MONO # 0.8 K/uL (0.0-0.8); MONO % 7.1 % (0.0-10.0); NEUT # 6.4 K/uL (1.8-7.0); NEUT % 57.5 % (50.0-75.0); NRBC % 0.1 % (0.0-2.0); RBC 4.06 Mil/uL (4.40-5.90); RED CELL DISTRIBUTION WIDTH 13.1 % (11.5-14.5); WHITE BLOOD COUNT 11.1 K/uL (4.8-10.8)
[2018-01-23 05:58] LABS: ALB/GLOB RATIO 1.2 (1.0-2.1); ALT/SGPT 47 U/L (21-72); AST/SGOT 29 U/L (17-59); BLOOD UREA NITROGEN 18 mg/dL (9-20); CALCIUM 8.9 mg/dl (8.6-10.4); GFR AFRICAN-AMERICAN > 60; GFR NON-AFRICAN AMERICAN > 60
[2018-01-23] MEDS: Vancomycin 1 gm/NS 200 ml 1 GM/200 ML BAG IVPB SCH ×2 (06:28→19:18)
[2018-01-23] MEDS: Pantoprazole 40 mg EC Tab PO SCH (09:16)
--- NOTE | 2018-01-23 09:39 | CP.PCM.PN ---
<Shant Barrios - Last Filed: 01/23/18 20:34> Subjective - Date & Time of Evaluation Date of Evaluation: 01/23/18 Time of Evaluation: 09:51 - Subjective Subjective: PGY 3 Med progress note- Dr. Ruma Infante's service Patient seen and examined in no apparent acute distress. Patient states that he experiences pain off and on. He states that most of his pain is on the surface of his foot. He states that he ambulates; sometimes with the use of a cane. He is tolerating a diet. He denies subjective fevers or chills, nausea, vomiting, chest pain , palpitations or diarrhea at this time. Objective - Vital Signs/Intake and Output Vital Signs (last 24 hours): Temp Pulse Resp BP Pulse Ox 98 F 68 20 134/86 95 01/23/18 00:00 01/23/18 00:00 01/23/18 00:00 01/23/18 00:00 01/23/18 00:00 Intake and Output: 01/23/18 01/23/18 06:59 18:59 Intake Total 715 Balance 715 - Medications Medications: Current Medications Heparin Sodium (Porcine) (Heparin) 5,000 units SC Q8 [facility] Last Admin: 01/23/18 05:56 Dose: 5,000 units Piperacillin Sod/Tazobactam Sod (Zosyn 3.375 Gm Iv Premix) 3.375 gm in 50 mls @ 100 mls/hr IVPB Q6H [facility] PRN Reason: Protocol Last Admin: 01/23/18 06:00 Dose: 100 mls/hr Vancomycin/Sodium Chloride (Vancomycin 1 Gm/Ns 200 Ml) 1 gm in 200 mls @ 133.333 mls/hr IVPB Q12H [facility] PRN Reason: Protocol Stop: 01/26/18 19:01 Last Admin: 01/23/18 06:28 Dose: 133.333 mls/hr Ketorolac Tromethamine (Toradol) 15 mg IVP Q6 PRN PRN Reason: Pain, moderate (4-7) Ketorolac Tromethamine (Toradol) 30 mg IVP Q6 PRN PRN Reason: Pain, severe (8-10) Last Admin: 01/23/18 04:35 Dose: 30 mg Lactobacillus Acidophilus (Bacid Acidophilus) 1 cap PO BID [facility] Last Admin: 01/22/18 17:36 Dose: 1 cap Ondansetron HCl (Zofran Inj) 4 mg IVP Q6 PRN PRN Reason: Nausea/Vomiting Pantoprazole Sodium (Protonix Ec Tab) 40 mg PO DAILY [facility] Last Admin: 01/23/18 09:16 Dose: 40 mg Pneumococcal Polyvalent Vaccine (Pneumovax 23 Vaccine) 0.5 ml IM .ONCE ONE Stop: 01/23/18 10:01 - Labs Labs: 01/23/18 05:38 01/23/18 05:38 PT 12.9 SECONDS (9.7-12.2) H 01/21/18 03:22 INR 1.2 01/21/18 03:22 APTT 35 SECONDS (21-34) H 01/21/18 03:22 - Constitutional Appears: Non-toxic, No Acute Distress - Head Exam Head Exam: ATRAUMATIC, NORMAL INSPECTION - Eye Exam Eye Exam: EOMI, Normal appearance, PERRL Pupil Exam: NORMAL ACCOMODATION - ENT Exam ENT Exam: Mucous Membranes Moist - Neck Exam Neck Exam: Full ROM - Respiratory Exam Respiratory Exam: NORMAL BREATHING PATTERN - Cardiovascular Exam Cardiovascular Exam: +S1, +S2 - GI/Abdominal Exam GI & Abdominal Exam: Soft, Normal Bowel Sounds - Extremities Exam Extremities Exam: Normal Capillary Refill, Tenderness (lower extermity phalangeal digits). absent: Calf Tenderness, Full ROM (decreased range of motion of left lower extremity phalangeal digits secondary to pain) Additional comments: mild swelling noted, non erythematous, dorsalis pedis pulses intact b/l, skin relatively intact under dressing-clean, dry and intact. no purulence noted - Neurological Exam Neurological Exam: Alert, Awake, CN II-XII Intact, Oriented x3 - Psychiatric Exam Psychiatric exam: Normal Affect, Normal Mood - Skin Skin Exam: Dry, Warm Assessment and Plan - Assessment and Plan (Free Text) Assessment: 52yo M with no prior medical history presents with septic arthritis of LLE s/p trauma with foreign object. Septic arthritis/Osteomyelitis of 1st MTP joint -CT LLE(01/21) showed large effusion surrounding 1st MTP joint and diffuse soft tissue edema of dorsum of foot. No foreign body identified -MRI LLE(01/21) abscess/joint effusion at 1st MPJ with reactive signal changes noted to base of proximal phalanx as well as 1st metatarsal head- Acute infectious changes; osteomyelitis or septic joint cannot be excluded. Refer to complete report -Joint fluid aspiration performed by podiatry. Gram stain negative. F/U fluid studies. F/U podiatry (Dr. Carter) recommendations -ESR 68 (elevated) -Vancomycin 1g Q12 (Started 01/21) -F/U Vanco trough 01/22 @ 18:30 -Zosyn 3.375gm Q6 (Started 01/21) -On Bacid probiotics -[facility] [place] confirmed pt received Tdap -Toradol PRN pain -for PICC line tomorrow- order placed. -PT eval and treat- F/U Nausea/vomiting -Zofran 4mg Q6 PRN- Improved -Continue to monitor Prophylaxis -Protonix 40mg PO -Heparin 5000 SC Q8,Patient instructed to ambulate as well <Hugo Infante - Last Filed: 01/23/18 21:44> Objective - Vital Signs/Intake and Output Vital Signs (last 24 hours): Temp Pulse Resp BP Pulse Ox 98.6 F 62 20 117/79 89 L 01/23/18 15:00 01/23/18 15:00 01/23/18 15:00 01/23/18 15:00 01/23/18 15:00 Intake and Output: 01/23/18 01/24/18 18:59 06:59 Intake Total 400 Output Total 2000 Balance -1600 - Medications Medications: Current Medications Heparin Sodium (Porcine) (Heparin) 5,000 units SC Q8 [facility] Last Admin: 01/23/18 13:31 Dose: 5,000 units Piperacillin Sod/Tazobactam Sod (Zosyn 3.375 Gm Iv Premix) 3.375 gm in 50 mls @ 100 mls/hr IVPB Q6H [facility] PRN Reason: Protocol Last Admin: 01/23/18 19:19 Dose: 100 mls/hr Vancomycin HCl 600 mg/ Sodium (Chloride) 250 mls @ 166.6 mls/hr IVPB Q12H [facility] PRN Reason: Protocol Ketorolac Tromethamine (Toradol) 15 mg IVP Q6 PRN PRN Reason: Pain, moderate (4-7) Ketorolac Tromethamine (Toradol) 30 mg IVP Q6 PRN PRN Reason: Pain, severe (8-10) Last Admin: 01/23/18 10:39 Dose: 30 mg Lactobacillus Acidophilus (Bacid Acidophilus) 1 cap PO BID [facility] Last Admin: 01/23/18 17:23 Dose: 1 cap Ondansetron HCl (Zofran Inj) 4 mg IVP Q6 PRN PRN Reason: Nausea/Vomiting Pantoprazole Sodium (Protonix Ec Tab) 40 mg PO DAILY [facility] Last Admin: 01/23/18 09:16 Dose: 40 mg - Labs Labs: 01/23/18 05:38 01/23/18 05:38 PT 12.9 SECONDS (9.7-12.2) H 01/21/18 03:22 INR 1.2 01/21/18 03:22 APTT 35 SECONDS (21-34) H 01/21/18 03:22 Attending/Attestation - Attestation I have personally seen and examined this patient.: Yes I have fully participated in the care of the patient.: Yes I have reviewed all pertinent clinical information, including history, physical exam and plan: Yes Notes (Text): 01/23/18 21:35 Patient was seen and examined at 4:00 PM 01/23/18 370 A Exam, assessment and plan were gone over with resident Dr. Barrios. Also on ROS: Pain in the Left Toe #1 sharp comes and goes Also on Exam: NO erythema noted around the Left Toe #1. However the left foot around this toe does appear to be slightly more swollen when compared to the right and slightly warmer. Tender to palpation on the dorsal surface around metatarsal head dorsal surface of Left Toe #1 and there is a small pinpoint dark spot on the pedal surface of the Left Toe #1 metatarsal head Joint aspiration 01/21/18 gram stain did not show any organisms and the culture is negative to date F/U Blood culture PICC Line ordered for 01/24/18 as patient will likely need 6 weeks of IV antibiotics considering findings on MRI of Left Foot Consult placed for ID Dr. Long for further recommendations F/U Vancomycin Trough for 6:30 PM 01/23/18 with goal trough to be 15 to 20 Patient to keep the left foot elevated while in bed and to apply ice packs to the area as needed (it was demonstrated to him how to active the ice pack and how to apply it). Plan of care was gone over with the patient and he expressed understanding. Hugo Infante D.O.
[2018-01-23] MEDS ORDERED: Pneumococcal 23-Valent Vaccine IM ONE (10:00)
[2018-01-23] MEDS: Lactobacillus Acidophilus 500 MU Cap PO SCH ×2 (10:37→17:23)
--- NOTE | 2018-01-23 15:19 | CP.PCM.PN ---
Subjective - Date & Time of Evaluation Date of Evaluation: 01/23/18 Time of Evaluation: 15:16 - Subjective Subjective: Podiatry progress note for Dr. Carter, 62 y/o male with no significant PMHx seen at bedside for left foot redness and swelling with pain to the big toe joint. He states the pain has stayed about the same since yesterday. Patient states it is still moderately painful. Patient states the pain is mainly by the big toe and its joints. Pain has started after the puncture wound. Patients dressing is seen to be dry, clean and intact Denies F/C/N/V/CP/SOB. Denies calf pain. Objective - Vital Signs/Intake and Output Vital Signs (last 24 hours): Temp Pulse Resp BP Pulse Ox 82 F L 20 L 97 H 128/65 11 L 01/23/18 08:00 01/23/18 08:00 01/23/18 08:00 01/23/18 08:00 01/23/18 08:00 Intake and Output: 01/23/18 01/23/18 06:59 18:59 Intake Total 715 Balance 715 - Medications Medications: Current Medications Heparin Sodium (Porcine) (Heparin) 5,000 units SC Q8 [facility] Last Admin: 01/23/18 13:31 Dose: 5,000 units Piperacillin Sod/Tazobactam Sod (Zosyn 3.375 Gm Iv Premix) 3.375 gm in 50 mls @ 100 mls/hr IVPB Q6H [facility] PRN Reason: Protocol Last Admin: 01/23/18 13:30 Dose: 100 mls/hr Vancomycin/Sodium Chloride (Vancomycin 1 Gm/Ns 200 Ml) 1 gm in 200 mls @ 133.333 mls/hr IVPB Q12H [facility] PRN Reason: Protocol Stop: 01/26/18 19:01 Last Admin: 01/23/18 06:28 Dose: 133.333 mls/hr Ketorolac Tromethamine (Toradol) 15 mg IVP Q6 PRN PRN Reason: Pain, moderate (4-7) Ketorolac Tromethamine (Toradol) 30 mg IVP Q6 PRN PRN Reason: Pain, severe (8-10) Last Admin: 01/23/18 10:39 Dose: 30 mg Lactobacillus Acidophilus (Bacid Acidophilus) 1 cap PO BID [facility] Last Admin: 01/23/18 10:37 Dose: 1 cap Ondansetron HCl (Zofran Inj) 4 mg IVP Q6 PRN PRN Reason: Nausea/Vomiting Pantoprazole Sodium (Protonix Ec Tab) 40 mg PO DAILY [facility] Last Admin: 01/23/18 09:16 Dose: 40 mg - Labs Labs: 01/23/18 05:38 01/23/18 05:38 PT 12.9 SECONDS (9.7-12.2) H 01/21/18 03:22 INR 1.2 01/21/18 03:22 APTT 35 SECONDS (21-34) H 01/21/18 03:22 - Constitutional Appears: Well, Non-toxic, No Acute Distress - Head Exam Head Exam: ATRAUMATIC, NORMOCEPHALIC - Extremities Exam Additional comments: Left lower extremity focused exam: Vasc: DP/PT pulses 2/4. Temperature gradient warm to warm. CFT < 3 sec to all digits. Nonpitting pedal edema noted to entirety of forefoot, increased around 1st MPJ Derm: No erythema noted; Fully healed puncture wound noted to plantar aspect of 1st MPJ. No open lesions, no ecchymosis, no drainage, no fluctuance Neuro: Protective sensation grossly intact Ortho: Moderate tenderness to palpation of left foot 1st MPJ and hallux. Tenderness elicited upon mobilization and distraction of 1st MPJ. - Neurological Exam Neurological Exam: Alert, Awake, Oriented x3 - Psychiatric Exam Psychiatric exam: Normal Affect, Normal Mood Assessment and Plan - Assessment and Plan (Free Text) Assessment: 52 y/o male with left foot 1st MPJ joint effusion vs abscess, secondary to puncture wound Plan: Pt seen and evaluated at bedside Discussed plan with attending Dr. Carter Chart, labs and vitals reviewed; WBC 11.[address] reveals fluid collection at 1st MPJ LLE MRI reveals abscess/joint effusion at 1st MPJ with reactive signal changes noted to base of proximal phalanx as well as 1st metatarsal head- acute infectious changes; osteomyelitis or septic joint cannot be excluded Joint aspiration cultures pending. Continue current abx regimen of IV Vancomycin, Zosyn Continue current pain management as per primary team Will continue to follow patient
[2018-01-23 17:41] VITALS: RESP 20
--- NOTE | 2018-01-23 21:46 | CP.PCM.PCO ---
Physician Communication Note - Physician Communication Note Physician Communication Note: Please see above
[2018-01-24] MEDS: Piperacill/Tazo 3.375gm in Dex 3.375 GM/50 ML BAG IVPB SCH ×4 (00:59→19:00)
--- NOTE | 2018-01-24 07:01 | CP.PCM.PN ---
<SalCierrachanell L - Last Filed: 01/24/18 19:25> Subjective - Date & Time of Evaluation Date of Evaluation: 01/24/18 Time of Evaluation: 07:01 - Subjective Subjective: Resident Progress Note for Hospitalist Service Patient examined at bedside. No acute events overnight. States he is eating and drinking well. States that he has an occasional pinching pain in his lower left extremity, however this is improved. Denies headache, dizziness, chest pain, shortness of breath, abdominal pain, changes in bowel movements, dysuria. Objective - Vital Signs/Intake and Output Vital Signs (last 24 hours): Temp Pulse Resp BP Pulse Ox 99.5 F 70 20 122/78 95 01/24/18 00:00 01/24/18 00:00 01/24/18 00:00 01/24/18 00:00 01/24/18 00:00 Intake and Output: 01/24/18 01/24/18 06:59 18:59 Intake Total 622 Output Total 500 Balance 122 - Medications Medications: Current Medications Heparin Sodium (Porcine) (Heparin) 5,000 units SC Q8 [facility] Last Admin: 01/24/18 06:12 Dose: 5,000 units Piperacillin Sod/Tazobactam Sod (Zosyn 3.375 Gm Iv Premix) 3.375 gm in 50 mls @ 100 mls/hr IVPB Q6H [facility] PRN Reason: Protocol Last Admin: 01/24/18 06:27 Dose: 100 mls/hr Vancomycin HCl 1 gm/ Sodium (Chloride) 200 mls @ 166.7 mls/hr IVPB Q12H [facility] PRN Reason: Protocol Ketorolac Tromethamine (Toradol) 15 mg IVP Q6 PRN PRN Reason: Pain, moderate (4-7) Last Admin: 01/23/18 23:17 Dose: 15 mg Ketorolac Tromethamine (Toradol) 30 mg IVP Q6 PRN PRN Reason: Pain, severe (8-10) Last Admin: 01/24/18 06:23 Dose: 30 mg Lactobacillus Acidophilus (Bacid Acidophilus) 1 cap PO BID [facility] Last Admin: 01/23/18 17:23 Dose: 1 cap Ondansetron HCl (Zofran Inj) 4 mg IVP Q6 PRN PRN Reason: Nausea/Vomiting Pantoprazole Sodium (Protonix Ec Tab) 40 mg PO DAILY [facility] Last Admin: 01/23/18 09:16 Dose: 40 mg - Labs Labs: 01/23/18 05:38 01/23/18 05:38 PT 12.9 SECONDS (9.7-12.2) H 01/21/18 03:22 INR 1.2 01/21/18 03:22 APTT 35 SECONDS (21-34) H 01/21/18 03:22 - Additional Findings Additional findings: - Constitutional Appears: Non-toxic, No Acute Distress - Head Exam Head Exam: ATRAUMATIC, NORMAL INSPECTION - Eye Exam Eye Exam: EOMI, Normal appearance, PERRL - ENT Exam ENT Exam: Mucous Membranes Moist - Neck Exam Neck Exam: Full ROM - Respiratory Exam Respiratory Exam: NORMAL BREATHING PATTERN - Cardiovascular Exam Cardiovascular Exam: Regular Rhythm, +S1, +S2 - GI/Abdominal Exam GI & Abdominal Exam: Soft, Normal Bowel Sounds - Extremities Exam Extremities Exam: Normal Capillary Refill, Tenderness (lower extermity phalangeal digits). absent: Calf Tenderness, Full ROM (decreased range of motion of left lower extremity phalangeal digits secondary to pain) Additional comments: mild swelling noted, no erythema, no purulence, dorsalis pedis pulses intact b/l , dressing is clean and dry - Neurological Exam Neurological Exam: Alert, Awake, Oriented x3 - Psychiatric Exam Psychiatric exam: Normal Affect, Normal Mood - Skin Skin Exam: Dry, Warm Assessment and Plan - Assessment and Plan (Free Text) Plan: Septic arthritis/Osteomyelitis of 1st MTP joint - CT LLE (01/21) shows large effusion surrounding 1st MTP joint and diffuse soft tissue edema of dorsum of foot. No foreign body identified - MRI LLE (01/21) shows abscess/joint effusion at 1st MPJ with reactive signal changes noted to base of proximal phalanx as well as 1st metatarsal head- Acute infectious changes; osteomyelitis or septic joint cannot be excluded. Refer to complete report - [facility] [place] confirmed pt received Tdap - ESR 68 (elevated) - Podiatry consulted. Recs appreciated - Vancomycin 1g Q12 (Started 01/21) - F/U Vanco trough 01/22 @ 18:30 - Zosyn 3.375gm Q6 (Started 01/21) - Blood culturesx2 NG after 48 hours - Wound culture prelim gram negative harika - Picc line placed - PT consulted Nausea/vomiting - Zofran 4mg Q6 PRN - Continue to monitor PPX - Protonix 40mg PO daily - Heparin 5000 SC Q8H - Lactobacillus Acidophilus Uri Sal PGY-1 <Miri Armstrong V - Last Filed: 01/25/18 01:06> Objective - Vital Signs/Intake and Output Vital Signs (last 24 hours): Temp Pulse Resp BP Pulse Ox 98.5 F 72 20 130/83 97 01/24/18 23:19 01/24/18 23:19 01/24/18 23:19 01/24/18 23:19 01/24/18 23:19 Intake and Output: 01/24/18 01/25/18 18:59 06:59 Intake Total 622 672 Balance 622 672 - Medications Medications: Current Medications Heparin Sodium (Porcine) (Heparin) 5,000 units SC Q8 [facility] Last Admin: 01/24/18 21:25 Dose: 5,000 units Vancomycin HCl 1 gm/ Sodium (Chloride) 200 mls @ 166.7 mls/hr IVPB Q12H [facility] PRN Reason: Protocol Last Admin: 01/24/18 19:00 Dose: Not Given Meropenem 1 gm/ Sodium (Chloride) 100 mls @ 100 mls/hr IVPB Q8H [facility] PRN Reason: Protocol Last Admin: 01/24/18 21:48 Dose: 100 mls/hr Lactobacillus Acidophilus (Bacid Acidophilus) 1 cap PO BID [facility] Last Admin: 01/24/18 17:41 Dose: 1 cap Ondansetron HCl (Zofran Inj) 4 mg IVP Q6 PRN PRN Reason: Nausea/Vomiting Pantoprazole Sodium (Protonix Ec Tab) 40 mg PO DAILY [facility] Last Admin: 01/24/18 09:31 Dose: 40 mg - Labs Labs: 01/24/18 07:09 01/24/18 07:09 PT 12.9 SECONDS (9.7-12.2) H 01/21/18 03:22 INR 1.2 01/21/18 03:22 APTT 35 SECONDS (21-34) H 01/21/18 03:22 Attending/Attestation - Attestation I have personally seen and examined this patient.: Yes I have fully participated in the care of the patient.: Yes I have reviewed all pertinent clinical information, including history, physical exam and plan: Yes Notes (Text): This is late computer entry for 01/24/18. Patient seen, examined, and case discussed with day-time resident. Patient seen during rounds this afternoon. Patient reports mild pinching sensation over the left lower extremity specifically over 1st metatarsal. Patient denies prior history of diabetes. Patient is a former smoker; quit about some years ago. Reviewed EMR with the internist medical doctor md. Patient received PICC line today for long-term IV abx to cover for osteomyelitis. Assessment/Plan 1) Septic arthritis Osteomyelitis of 1st MTP joint Assessment/Plan * Podiatry (Dr. Tabitha Carter) on consult * CT LLE(01/21) showed large effusion surrounding 1st MTP joint and diffuse soft tissue edema of dorsum of foot. No foreign body identified * MRI LLE(01/21) abscess/joint effusion at 1st MPJ with reactive signal changes noted to base of proximal phalanx as well as 1st metatarsal head- Acute infectious changes; osteomyelitis or septic joint cannot be excluded. Refer to complete report * ESR 68 (elevated) * Bacid 1 cap PO BID * Vancomycin 1g Q12 (Started 01/21/18) * Zosyn 3.375gm Q6 (Started 01/21-) * Switched to Meropenem 1 gm IVPB Q8H (active 01/24/18) * Foot Left (01/21/18): gram negative harika * PT eval and treat- F/U 2) Nausea/vomiting Assessment/Plan * Zofran 4mg Q6 PRN- Improved * Continue to monitor 3) Prophylaxis Assessment/Plan * Protonix 40mg PO daily * Heparin 5000 SC Q8H * Bacid 1 cap PO BID * PICC 01/24/18 Disposition: patient to receive PICC line today; f/u ID; f/u joint aspiration culture; c/w IV abx
[2018-01-24 07:27] LABS: BASO # 0.1 K/uL (0.0-0.2); BASO % 0.5 % (0.0-2.0); EOS # 0.6 K/uL (0.0-0.7); EOS % 4.7 % (0.0-4.0); HEMOGLOBIN 12.6 g/dL (12.0-18.0); LYMPH # 3.1 K/uL (1.0-4.3); LYMPH % 25.7 % (20.0-40.0); MEAN CELL VOLUME 85.7 fL (80.0-94.0); MEAN CORPUSCULAR HEMOGLOBIN 30.3 pg (27.0-31.0); MEAN CORPUSCULAR HGB CONC 35.4 g/dL (33.0-37.0); MEAN PLATELET VOLUME 8.1 fL (7.2-11.7); MONO # 0.7 K/uL (0.0-0.8); MONO % 6.3 % (0.0-10.0); NEUT # 7.5 K/uL (1.8-7.0); NEUT % 62.8 % (50.0-75.0); NRBC % 0.1 % (0.0-2.0); RBC 4.14 Mil/uL (4.40-5.90); RED CELL DISTRIBUTION WIDTH 13.4 % (11.5-14.5); WHITE BLOOD COUNT 11.9 K/uL (4.8-10.8)
[2018-01-24] MEDS: Vancomycin 1 GM in Sodium Chloride 0.9% 200 ML IVPB SCH ×2 (07:33→19:00)
[2018-01-24 07:40] LABS: ALB/GLOB RATIO 1.2 (1.0-2.1); ALBUMIN 4.1 g/dL (3.5-5.0); ALT/SGPT 49 U/L (21-72); AST/SGOT 31 U/L (17-59); BLOOD UREA NITROGEN 15 mg/dL (9-20); CALCIUM 9.2 mg/dl (8.6-10.4); GFR AFRICAN-AMERICAN > 60; GFR NON-AFRICAN AMERICAN > 60
[2018-01-24] MEDS: Pantoprazole 40 mg EC Tab PO SCH (09:31)
[2018-01-24] MEDS: Lactobacillus Acidophilus 500 MU Cap PO SCH ×2 (09:31→17:41)
--- NOTE | 2018-01-24 13:37 | RAD ---
Date of service: 01/24/2018 HISTORY: verify right PICC COMPARISON: No prior. FINDINGS: LUNGS: No active pulmonary disease. PLEURA: No significant pleural effusion identified, no pneumothorax apparent. CARDIOVASCULAR: Right PICC catheter terminating just above the level of the cavoatrial junction. OSSEOUS STRUCTURES: No significant abnormalities. VISUALIZED UPPER ABDOMEN: Normal. OTHER FINDINGS: None. IMPRESSION: Right PICC catheter terminates above the level of the cavoatrial junction.
[2018-01-24] MEDS: Vancomycin 1 gm/NS 200 ml 1 GM/200 ML BAG IVPB SCH (19:00)
--- NOTE | 2018-01-24 20:28 | CP.PCM.CON ---
History of Present Illness - History of Present Illness History of Present Illness: dictated Past Patient History - Infectious Disease Hx of Infectious Diseases: None - Past Medical History & Family History Past Medical History?: No - Past Social History Smoking Status: Never Smoked - MUSCULOSKELETAL/RHEUMATOLOGICAL Hx Falls: No - PSYCHIATRIC Hx Substance Use: No - SURGICAL HISTORY Hx Surgeries: Yes Other/Comment: r ankle repair - ANESTHESIA Hx Anesthesia: Yes Hx Anesthesia Reactions: No Meds Allergies/Adverse Reactions: Allergies Allergy/AdvReac Type Severity Reaction Status Date / Time No Known Allergies Allergy Verified 01/21/18 02:45 - Medications Medications: Current Medications Heparin Sodium (Porcine) (Heparin) 5,000 units SC Q8 [facility] Last Admin: 01/24/18 13:43 Dose: 5,000 units Piperacillin Sod/Tazobactam Sod (Zosyn 3.375 Gm Iv Premix) 3.375 gm in 50 mls @ 100 mls/hr IVPB Q6H [facility] PRN Reason: Protocol Last Admin: 01/24/18 12:07 Dose: 100 mls/hr Vancomycin HCl 1 gm/ Sodium (Chloride) 200 mls @ 166.7 mls/hr IVPB Q12H [facility] PRN Reason: Protocol Last Admin: 01/24/18 07:33 Dose: 166.7 mls/hr Lactobacillus Acidophilus (Bacid Acidophilus) 1 cap PO BID [facility] Last Admin: 01/24/18 17:41 Dose: 1 cap Ondansetron HCl (Zofran Inj) 4 mg IVP Q6 PRN PRN Reason: Nausea/Vomiting Pantoprazole Sodium (Protonix Ec Tab) 40 mg PO DAILY [facility] Last Admin: 01/24/18 09:31 Dose: 40 mg Results - Vital Signs Recent Vital Signs: Last Vital Signs Temp 98.8 F 01/24/18 16:06 Pulse 74 01/24/18 16:06 Resp 20 01/24/18 16:06 BP 125/82 01/24/18 16:06 Pulse Ox 95 01/24/18 16:06 - Labs Result Diagrams: 01/24/18 07:09 01/24/18 07:09 Labs: Laboratory Results - last 24 hr 01/23/18 01/23/18 01/23/18 07:32 11:19 16:24 WBC RBC Hgb Hct MCV MCH MCHC RDW Plt Count MPV Neut % (Auto) Lymph % (Auto) [place] % (Auto) Eos % (Auto) Baso % (Auto) Neut # (Auto) Lymph # (Auto) [place] # (Auto) Eos # (Auto) Baso # (Auto) Sodium Potassium Chloride Carbon Dioxide Anion Gap BUN Creatinine Est GFR ( Amer) Est GFR (Non-Af Amer) POC Glucose (mg/dL) 104 97 105 Random Glucose Calcium Phosphorus Magnesium Total Bilirubin AST ALT Alkaline Phosphatase Total Protein Albumin Globulin Albumin/Globulin Ratio Vancomycin Trough 01/23/18 01/24/18 01/24/18 21:10 06:14 07:09 WBC 11.9 H RBC 4.14 L Hgb 12.6 Hct 35.5 MCV 85.7 MCH 30.3 MCHC 35.4 RDW 13.4 Plt Count 348 MPV 8.1 Neut % (Auto) 62.8 Lymph % (Auto) 25.7 [place] % (Auto) 6.3 Eos % (Auto) 4.7 H Baso % (Auto) 0.5 Neut # (Auto) 7.5 H Lymph # (Auto) 3.1 [place] # (Auto) 0.7 Eos # (Auto) 0.6 Baso # (Auto) 0.1 Sodium Potassium Chloride Carbon Dioxide Anion Gap BUN Creatinine Est GFR ( Amer) Est GFR (Non-Af Amer) POC Glucose (mg/dL) 105 Random Glucose Calcium Phosphorus Magnesium Total Bilirubin AST ALT Alkaline Phosphatase Total Protein Albumin Globulin Albumin/Globulin Ratio Vancomycin Trough 5.8 01/24/18 01/24/18 07:09 07:36 WBC RBC Hgb Hct MCV MCH MCHC RDW Plt Count MPV Neut % (Auto) Lymph % (Auto) [place] % (Auto) Eos % (Auto) Baso % (Auto) Neut # (Auto) Lymph # (Auto) [place] # (Auto) Eos # (Auto) Baso # (Auto) Sodium 142 Potassium 4.0 Chloride 104 Carbon Dioxide 27 Anion Gap 14 BUN 15 Creatinine 0.9 Est GFR ( Amer) > 60 Est GFR (Non-Af Amer) > 60 POC Glucose (mg/dL) 91 Random Glucose 99 Calcium 9.2 Phosphorus 4.5 Magnesium 2.0 Total Bilirubin 0.3 AST 31 ALT 49 Alkaline Phosphatase 97 Total Protein 7.7 Albumin 4.1 Globulin 3.5 Albumin/Globulin Ratio 1.2 Vancomycin Trough
[2018-01-24] MEDS ORDERED: Meropenem 1 GM in Sodium Chloride 0.9% 100 ML IVPB SCH (20:45)
[2018-01-24] MEDS: Meropenem 1 GM in Sodium Chloride 0.9% 100 ML IVPB SCH (21:48)
--- NOTE | 2018-01-24 22:16 | CP.PCM.PN ---
Subjective - Date & Time of Evaluation Date of Evaluation: 01/24/18 Time of Evaluation: 06:30 - Subjective Subjective: Podiatry Progress Note- Dr. Carter 52M seen and evaluated at bedside for left foot 1st MPJ joint effusion vs abscess, secondary to puncture wound that has healed. Patient is seen resting in bed, in NAD. Patient expresses moderate pain to the left foot at the location of 1st MPJ. Patient reports that the pain has improved since the ED however reports moderate left foot pain. Reports the pain as a stabbing pain that stays localized to the medial foot. Denies any nausea, fever, shortness of breath, chest pains or chills. Objective - Vital Signs/Intake and Output Vital Signs (last 24 hours): Temp Pulse Resp BP Pulse Ox 98.8 F 74 20 125/82 95 01/24/18 16:06 01/24/18 16:06 01/24/18 16:06 01/24/18 16:06 01/24/18 16:06 Intake and Output: 01/24/18 01/25/18 18:59 06:59 Intake Total 622 22 Balance 622 22 - Medications Medications: Current Medications Heparin Sodium (Porcine) (Heparin) 5,000 units SC Q8 [facility] Last Admin: 01/24/18 21:25 Dose: 5,000 units Vancomycin HCl 1 gm/ Sodium (Chloride) 200 mls @ 166.7 mls/hr IVPB Q12H [facility] PRN Reason: Protocol Last Admin: 01/24/18 19:00 Dose: Not Given Meropenem 1 gm/ Sodium (Chloride) 100 mls @ 100 mls/hr IVPB Q8H [facility] PRN Reason: Protocol Last Admin: 01/24/18 21:48 Dose: 100 mls/hr Lactobacillus Acidophilus (Bacid Acidophilus) 1 cap PO BID [facility] Last Admin: 01/24/18 17:41 Dose: 1 cap Ondansetron HCl (Zofran Inj) 4 mg IVP Q6 PRN PRN Reason: Nausea/Vomiting Pantoprazole Sodium (Protonix Ec Tab) 40 mg PO DAILY [facility] Last Admin: 01/24/18 09:31 Dose: 40 mg - Labs Labs: 01/24/18 07:09 01/24/18 07:09 PT 12.9 SECONDS (9.7-12.2) H 01/21/18 03:22 INR 1.2 01/21/18 03:22 APTT 35 SECONDS (21-34) H 01/21/18 03:22 - Constitutional Appears: Well, Non-toxic, No Acute Distress - Extremities Exam Extremities Exam: absent: Calf Tenderness Additional comments: Left lower extremity focused exam: Vasc: DP/PT pulses 2/4. Temperature gradient warm to warm. CFT < 3 sec to all digits. Nonpitting pedal edema noted to entirety of forefoot, increased around 1st MPJ Derm: No erythema noted; no streaking, Fully healed puncture wound noted to plantar aspect of 1st MPJ. No open lesions, no ecchymosis, no drainage, no fluctuance, no abscess, increase warmth noted to the site of pain. Neuro: Protective sensation grossly intact Ortho: Moderate tenderness to palpation of left foot 1st MPJ and hallux. Tenderness elicited upon mobilization and distraction of 1st MPJ. - Neurological Exam Neurological Exam: Alert, Awake - Psychiatric Exam Psychiatric exam: Normal Affect, Normal Mood Assessment and Plan - Assessment and Plan (Free Text) Assessment: 52 y/o male with left foot 1st MPJ joint effusion vs abscess, secondary to puncture wound Plan: Plan: Pt seen and evaluated at bedside Discussed plan with attending Dr. Carter Chart, labs and vitals reviewed; WBC 11.[address] reveals fluid collection at 1st MPJ LLE MRI reveals abscess/joint effusion at 1st MPJ with reactive signal changes noted to base of proximal phalanx as well as 1st metatarsal head- acute infectious changes; osteomyelitis or septic joint cannot be excluded Joint aspiration cultures pending. Continue current abx regimen of IV Vancomycin, Zosyn Continue current pain management as per primary team Will continue to follow patient
[2018-01-25] MEDS: Meropenem 1 GM in Sodium Chloride 0.9% 100 ML IVPB SCH ×3 (05:52→21:04)
[2018-01-25] MEDS: Vancomycin 1 GM in Sodium Chloride 0.9% 200 ML IVPB SCH ×2 (07:11→19:00)
[2018-01-25 07:18] LABS: BASO # 0.1 K/uL (0.0-0.2); BASO % 0.5 % (0.0-2.0); EOS # 0.5 K/uL (0.0-0.7); EOS % 4.3 % (0.0-4.0); HEMOGLOBIN 12.3 g/dL (12.0-18.0); LYMPH # 3.1 K/uL (1.0-4.3); LYMPH % 24.2 % (20.0-40.0); MEAN CELL VOLUME 86.8 fL (80.0-94.0); MEAN CORPUSCULAR HEMOGLOBIN 30.1 pg (27.0-31.0); MEAN CORPUSCULAR HGB CONC 34.6 g/dL (33.0-37.0); MEAN PLATELET VOLUME 8.2 fL (7.2-11.7); MONO # 0.7 K/uL (0.0-0.8); MONO % 5.9 % (0.0-10.0); NEUT # 8.3 K/uL (1.8-7.0); NEUT % 65.1 % (50.0-75.0); RBC 4.08 Mil/uL (4.40-5.90); RED CELL DISTRIBUTION WIDTH 13.3 % (11.5-14.5); WHITE BLOOD COUNT 12.8 K/uL (4.8-10.8)
[2018-01-25 08:04] LABS: ALB/GLOB RATIO 1.1 (1.0-2.1); ALBUMIN 4.1 g/dL (3.5-5.0); ALT/SGPT 49 U/L (21-72); AST/SGOT 33 U/L (17-59); BLOOD UREA NITROGEN 17 mg/dL (9-20); CALCIUM 9.1 mg/dl (8.6-10.4); GFR AFRICAN-AMERICAN > 60; GFR NON-AFRICAN AMERICAN > 60
--- NOTE | 2018-01-25 08:08 | CON ---
Copied To: Elfego Long MD Attending MD: Elfego Long MD DATE: 01/24/2018 INFECTIOUS DISEASE CONSULTATION REQUESTED BY Hugo Infante DO HISTORY OF PRESENT ILLNESS: This patient is a 52-year-old male. He is admitted here from the emergency room with left lower extremity pain. 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 He was wearing his work boots, but it went through his foot. He was seen in [facility] in [place] for worker's comp who gave him Augmentin, Toradol and ibuprofen. He also got a tetanus shot, Tdap in the clinic and was now admitted here on 01/21/2018. Came in with a throbbing pain of the left foot. He says once the pain medicine is given, it has stopped but in three to four hours, it comes back and throbbing pain and swelling and redness. He denied any pus at the site, but he is not able to stand well due to pain. He denies any diabetes. He has been on pain medications. He was on Augmentin and when he came to the hospital, he was having diarrhea. He told Dr. Infante that he had two days of loose BMs which he did not complain today. He is on IV antibiotics. He also got a PICC line now which I saw. His past surgical history is negative except for he showed me a scar on the right ankle which he did not tell me what it was, but he said that was the surgical scar whether it was just stitches or deep surgery. MEDICATIONS: He takes no medications. FAMILY HISTORY: Otherwise family history is noncontributory. SOCIAL HISTORY: He works in construction. Social history is negative for smoking or drinking or IV drug abuse. He works operating machinery and heavy equipments. He lives with his family. He has no medical history, came in with his left foot swelling and redness and edema. He underwent an MRI. He is on antibiotics, vancomycin and Zosyn. REVIEW OF SYSTEMS: He did feel tired. He denied any ears, nose, throat problems. He denies any chest pain. No shortness of breath. No respiratory issues. No cough. No asthma history. No chest congestion. He did have loose BM. He also vomited once prior to admission. He denied any abdominal pain. Denied any urinary complaints. Denies any abnormal gait. He has swelling and foot infection is on the left foot. He has no numbness, no tingling. No other issues with this foot. Denies any substance abuse. No smoking. No drinking. He had a right ankle repair, surgery price in the past. PHYSICAL EXAMINATION: VITAL SIGNS: He has been afebrile since he has been here, but T-max is 98.6, pulse 78, blood pressure 116/79, respirations are 20. HEENT: Head is atraumatic, normocephalic. Pupils are reacting to light. NECK: Supple. JVP is flat. LUNGS: Clear. No crackles or rales present. HEART: S1, S2 are regular. No murmurs present. ABDOMEN: Soft, nontender. No guarding, no rigidity present. EXTREMITIES: Left foot has this dressing over the wound at this time. Podiatry note shows left lower extremity has diffuse swelling around metatarsal joints and negative calf tenderness. He remains with left foot swelling. LABORATORY DATA: Labs are noted. Labs show white count is 11.9, hemoglobin 12.6, hematocrit 35.5, platelet count is 348. Sodium is 142, potassium is 4, chlorides are 104, CO2 is 27, BUN is 15, creatinine 0.9. ASSESSMENT AND PLAN: The urine toxicology shows that the vancomycin trough was 5.8 today which is kind of low, so we will increase the vancomycin. I also had an arterial blood gas done which was unremarkable as such. He had a lower extremity MRI which shows prominent enhancing fluid distention of the first metatarsal joint space. In addition, there is reactive signal change with patchy decreased T1 signal, increased STIR signal, and patchy enhancement noted in the head of the first metatarsal bone as well in the base of the first proximal phalanx. These findings are concerning for acute infectious and/or inflammatory changes underlying septic arthritis with developing acute osteomyelitis cannot be excluded. Clinical correlation is recommended. Additional mild reactive edema with additional signal changes noted within the medial sesamoid bone, hallux valgus deformity, prominent of the edema with the dorsal soft tissue of the midfoot. Mild tenosynovitis of the flexor hallucis tendon sheath. Mild increased signal at the level of the Lisfranc ligament which may represent a low-grade sprain and/or mild partial tearing, clinical correlation. There are multiple findings, so he may have osteomyelitis as there is swelling of the first metatarsal bone and joint and sesamoid bone. They are talking of the tenosynovitis, and they are talking of Lisfranc ligament having partial tear. All these findings are there, and the culture was done of the wound which shows gram-negative rods at this time. Identification and sensitivity of this organism is pending. He already has a peripherally inserted central catheter line. He is on vancomycin and Zosyn. I would change it to meropenem because he had a puncture wound most likely, and he has gram-negatives, so we will put him on Merrem which will be every 8 hours and also leave him on vancomycin that is the most common organism. Staphylococcus is the most common causing osteomyelitis. We will follow with podiatry attending as well as Dr. Ruma Infante and to discuss further plan. This probably happened from the trauma causing a puncture wound and causing all these deformities. I think he was brought a metal piece because he has problem on many joints. We will follow. Elfego Long MD
[2018-01-25] MEDS: Pantoprazole 40 mg EC Tab PO SCH (09:31)
[2018-01-25] MEDS: Lactobacillus Acidophilus 500 MU Cap PO SCH ×2 (09:31→17:46)
--- NOTE | 2018-01-25 13:17 | CP.PCM.PN ---
Subjective - Date & Time of Evaluation Date of Evaluation: 01/25/18 Time of Evaluation: 11:00 - Subjective Subjective: Podiatry Progress Note- Dr. Raul LoganM seen and evaluated at bedside for left foot 1st MPJ joint effusion/abscess secondary to puncture wound that has healed. Patient is seen out of bed, in NAD. Patient expresses moderate pain to the left foot at the location of 1st MPJ rating the pain 7/10 at the moment. Patient reports that he is able to work with physical therapy to walk in a surgical shoe to the left heel however reports painful when forefoot touches the ground. Denies any nausea, fever, shortness of breath, chest pains or chills. Objective - Vital Signs/Intake and Output Vital Signs (last 24 hours): Temp Pulse Resp BP Pulse Ox 98.1 F 67 20 117/80 95 01/25/18 08:00 01/25/18 08:00 01/25/18 08:00 01/25/18 08:00 01/25/18 08:00 Intake and Output: 01/25/18 01/25/18 06:59 18:59 Intake Total 672 Balance 672 - Medications Medications: Current Medications Heparin Sodium (Porcine) (Heparin) 5,000 units SC Q8 [facility] Last Admin: 01/25/18 05:51 Dose: 5,000 units Vancomycin HCl 1 gm/ Sodium (Chloride) 200 mls @ 166.7 mls/hr IVPB Q12H [facility] PRN Reason: Protocol Last Admin: 01/25/18 07:11 Dose: 166.7 mls/hr Meropenem 1 gm/ Sodium (Chloride) 100 mls @ 100 mls/hr IVPB Q8H [facility] PRN Reason: Protocol Last Admin: 01/25/18 05:52 Dose: 100 mls/hr Ketorolac Tromethamine (Toradol) 15 mg IVP Q6 PRN PRN Reason: Pain, moderate (4-7) Last Admin: 01/25/18 03:23 Dose: 15 mg Lactobacillus Acidophilus (Bacid Acidophilus) 1 cap PO BID [facility] Last Admin: 01/25/18 09:31 Dose: 1 cap Ondansetron HCl (Zofran Inj) 4 mg IVP Q6 PRN PRN Reason: Nausea/Vomiting Pantoprazole Sodium (Protonix Ec Tab) 40 mg PO DAILY [facility] Last Admin: 01/25/18 09:31 Dose: 40 mg - Labs Labs: 01/25/18 07:00 01/25/18 07:00 PT 12.9 SECONDS (9.7-12.2) H 01/21/18 03:22 INR 1.2 01/21/18 03:22 APTT 35 SECONDS (21-34) H 01/21/18 03:22 - Constitutional Appears: Well, Non-toxic, No Acute Distress - Extremities Exam Extremities Exam: absent: Calf Tenderness Additional comments: Left lower extremity focused exam: Vasc: DP/PT pulses 2/4. Temperature gradient warm to warm. CFT < 3 sec to all digits. Nonpitting pedal edema noted to entirety of forefoot, increased around 1st MPJ Derm: No erythema noted; no streaking, Fully healed puncture wound noted to plantar aspect of 1st MPJ. No open lesions, no ecchymosis, no drainage, no fluctuance, no abscess, increase warmth noted to the site of pain. Neuro: Protective sensation grossly intact Ortho: Moderate tenderness to palpation of left foot 1st MPJ and hallux. Tenderness elicited upon mobilization and distraction of 1st MPJ. AROM 1-5 digit WNL - Neurological Exam Neurological Exam: Alert, Awake, Oriented x3 - Psychiatric Exam Psychiatric exam: Normal Affect, Normal Mood Assessment and Plan - Assessment and Plan (Free Text) Assessment: 52M with left foot 1st MPJ joint effusion vs abscess, secondary to puncture wound Plan: Pt seen and evaluated at bedside Discussed plan with attending Dr. Carter Chart, labs and vitals reviewed; WBC 12.8 trended up from 11.0 (on 01/24/18) ESR [address] reveals fluid collection at 1st MPJ LLE MRI reveals abscess/joint effusion at 1st MPJ with reactive signal changes noted to base of proximal phalanx as well as 1st metatarsal head- acute infectious changes; osteomyelitis or septic joint cannot be excluded Joint aspiration culture-pseudomonas aeruginosa Continue current abx regimen of IV Meropenem and Vancomycin Continue current pain management as per primary team C/w PT. WBAT to the heels to the left foot Will continue to follow patient
--- NOTE | 2018-01-25 16:09 | CP.PCM.PN ---
<Abbie Briseno - Last Filed: 01/25/18 17:21> Subjective - Date & Time of Evaluation Date of Evaluation: 01/25/18 Time of Evaluation: 09:20 - Subjective Subjective: Patient examined at bedside. Complains of continued pain at 1st MTP, although improving daily. Patient reports pain is poorly controlled with medication; patient was instructed on having to request pain medication when needed. Patient denies chest pain, SOB, abd pain, nausea, diarrhea, constipation. Objective - Vital Signs/Intake and Output Vital Signs (last 24 hours): Temp Pulse Resp BP Pulse Ox 98.1 F 67 20 117/80 95 01/25/18 08:00 01/25/18 08:00 01/25/18 08:00 01/25/18 08:00 01/25/18 08:00 Intake and Output: 01/25/18 01/25/18 06:59 18:59 Intake Total 672 600 Balance 672 600 - Medications Medications: Current Medications Heparin Sodium (Porcine) (Heparin) 5,000 units SC Q8 [facility] Last Admin: 01/25/18 13:41 Dose: 5,000 units Vancomycin HCl 1 gm/ Sodium (Chloride) 200 mls @ 166.7 mls/hr IVPB Q12H [facility] PRN Reason: Protocol Last Admin: 01/25/18 07:11 Dose: 166.7 mls/hr Meropenem 1 gm/ Sodium (Chloride) 100 mls @ 100 mls/hr IVPB Q8H [facility] PRN Reason: Protocol Last Admin: 01/25/18 13:41 Dose: 100 mls/hr Ketorolac Tromethamine (Toradol) 15 mg IVP Q6 PRN PRN Reason: Pain, moderate (4-7) Last Admin: 01/25/18 13:40 Dose: 15 mg Lactobacillus Acidophilus (Bacid Acidophilus) 1 cap PO BID [facility] Last Admin: 01/25/18 09:31 Dose: 1 cap Ondansetron HCl (Zofran Inj) 4 mg IVP Q6 PRN PRN Reason: Nausea/Vomiting Pantoprazole Sodium (Protonix Ec Tab) 40 mg PO DAILY [facility] Last Admin: 01/25/18 09:31 Dose: 40 mg - Labs Labs: 01/25/18 07:00 01/25/18 07:00 PT 12.9 SECONDS (9.7-12.2) H 08//18 03:22 INR 1.2 01/21/18 03:22 APTT 35 SECONDS (21-34) H 01/21/18 03:22 - Constitutional Appears: Non-toxic, No Acute Distress - Head Exam Head Exam: ATRAUMATIC, NORMAL INSPECTION, NORMOCEPHALIC - Eye Exam Eye Exam: EOMI, Normal appearance Pupil Exam: PERRL - ENT Exam ENT Exam: Mucous Membranes Moist, Normal Exam - Neck Exam Neck Exam: Full ROM, Normal Inspection - Respiratory Exam Respiratory Exam: Clear to Ausculation Bilateral, NORMAL BREATHING PATTERN. absent: Rhonchi, Wheezes - Cardiovascular Exam Cardiovascular Exam: REGULAR RHYTHM, +S1, +S2. absent: Tachycardia, Murmur - GI/Abdominal Exam GI & Abdominal Exam: Soft, Normal Bowel Sounds. absent: Distended, Tenderness - Extremities Exam Extremities Exam: Normal Capillary Refill, Pedal Edema (pedal edema on left), Tenderness (LLE tendet to palpation). absent: Calf Tenderness, Normal Inspection (left foot wrapped in gauze, clean, dry and intact.) - Neurological Exam Neurological Exam: Alert, Awake, Oriented x3 - Psychiatric Exam Psychiatric exam: Normal Affect, Normal Mood - Skin Skin Exam: Intact, Normal Color, Warm Assessment and Plan - Assessment and Plan (Free Text) Assessment: 52 yo m w/ no prior medical history presents with pain/swelling of LLE s/p trauma with foreign object. Septic arthritis/Osteomyelitis of 1st MTP joint -CT LLE(01/21) showed large effusion surrounding 1st MTP joint and diffuse soft tissue edema of dorsum of foot. No foreign body identified -MRI LLE(01/21) suspects septic joint vs osteomyelitis of 1st MTP joint -[facility] [place] confirmed pt received Tdap -Toradol 15mg PRN pain -joint aspirated by podiatry -aspirate Pseudomonas + -ESR 68 -PICC(01/24) -vanco 1g Q12(01/21) -merrem 1g Q8(01/24) -PT eval and tx -Podiatry consult Dr. Carter -ID consult Dr. Long Nausea/vomiting -zofran 4mg Q6 PRN Ppx -protonix 40 PO -heparin 5000 sc Q8 -Lactobacillus PO Dispo: Pt on IV Abx, f/u w/ therapeutic case manager to see if eligible for outpatient Abx <Miri Armstrong V - Last Filed: 01/26/18 14:53> Objective - Vital Signs/Intake and Output Vital Signs (last 24 hours): Temp Pulse Resp BP Pulse Ox 98.7 F 78 20 127/86 97 01/25/18 15:00 01/25/18 15:00 01/25/18 15:00 01/25/18 15:00 01/25/18 15:00 Intake and Output: 01/25/18 01/26/18 18:59 06:59 Intake Total 622 Balance 622 - Medications Medications: Current Medications Heparin Sodium (Porcine) (Heparin) 5,000 units SC Q8 [facility] Last Admin: 01/25/18 21:04 Dose: 5,000 units Vancomycin HCl 1 gm/ Sodium (Chloride) 200 mls @ 166.7 mls/hr IVPB Q12H [facility] PRN Reason: Protocol Last Admin: 01/25/18 19:00 Dose: 166.7 mls/hr Meropenem 1 gm/ Sodium (Chloride) 100 mls @ 100 mls/hr IVPB Q8H [facility] PRN Reason: Protocol Last Admin: 01/25/18 21:04 Dose: 100 mls/hr Ketorolac Tromethamine (Toradol) 15 mg IVP Q6 PRN PRN Reason: Pain, moderate (4-7) Last Admin: 01/25/18 13:40 Dose: 15 mg Lactobacillus Acidophilus (Bacid Acidophilus) 1 cap PO BID [facility] Last Admin: 01/25/18 17:46 Dose: 1 cap Ondansetron HCl (Zofran Inj) 4 mg IVP Q6 PRN PRN Reason: Nausea/Vomiting Pantoprazole Sodium (Protonix Ec Tab) 40 mg PO DAILY [facility] Last Admin: 01/25/18 09:31 Dose: 40 mg - Labs Labs: 01/25/18 07:00 01/25/18 07:00 PT 12.9 SECONDS (9.7-12.2) H 01/21/18 03:22 INR 1.2 01/21/18 03:22 APTT 35 SECONDS (21-34) H 01/21/18 03:22 Attending/Attestation - Attestation I have personally seen and examined this patient.: Yes I have fully participated in the care of the patient.: Yes I have reviewed all pertinent clinical information, including history, physical exam and plan: Yes Notes (Text): This is late computer entry for 01/25/18. Patient seen, examined, and case discussed with day-time resident. Patient seen during rounds this afternoon. Patient reports mild pinching sensation over the left lower extremity specifically over 1st metatarsal. When i asked him how he is taking his pain medications, it does not appear he is asking for them appropriately times. We have went over pain scale with him and when to ask so he does not remain in pain. Patient's joint aspiration reveals Pseudomonas which is sensitive to Meropenem; though Ciprofloxacin may be the better option based on AVA. We will f/u with ID to see which antibiotic of choice and will f/u with podiatry to see if there is any plan for further intervention. Patient denies prior history of diabetes. Patient is a former smoker; quit about some years ago. Reviewed EMR with the news internship. P Assessment/Plan 1) Septic arthritis Osteomyelitis of 1st MTP joint Assessment/Plan * Podiatry (Dr. Tabitha Carter) on consult * CT LLE(01/21) showed large effusion surrounding 1st MTP joint and diffuse soft tissue edema of dorsum of foot. No foreign body identified * MRI LLE(01/21) abscess/joint effusion at 1st MPJ with reactive signal changes noted to base of proximal phalanx as well as 1st metatarsal head- Acute infectious changes; osteomyelitis or septic joint cannot be excluded. Refer to complete report * ESR 68 (elevated) * Bacid 1 cap PO BID * Vancomycin 1g Q12 (Started 01/21/18) * Random vanco level noted * Zosyn 3.375gm Q6 (Started 01/21-) * Switched to Meropenem 1 gm IVPB Q8H (active 01/24/18) * Foot Left (01/21/18): Pseudomonas-->sensitive to Meropenem * PT eval and treat- F/U 2) Impaired glucose tolerance Assessment/Plan * Monitor * Recommend check a1c in one year 3) Nausea/vomiting Assessment/Plan * Zofran 4mg Q6 PRN- Improved * Continue to monitor 4) Prophylaxis Assessment/Plan * Protonix 40mg PO daily * Heparin 5000 SC Q8H * Bacid 1 cap PO BID * PICC 01/24/18 Disposition: f/u ID; f/u joint aspiration culture; c/w IV abx
[2018-01-26] MEDS: Meropenem 1 GM in Sodium Chloride 0.9% 100 ML IVPB SCH ×3 (05:20→21:44)
[2018-01-26] MEDS: Vancomycin 1 GM in Sodium Chloride 0.9% 200 ML IVPB SCH ×2 (06:30→19:50)
[2018-01-26 07:49] LABS: BASO # 0.1 K/uL (0.0-0.2); BASO % 0.5 % (0.0-2.0); EOS # 0.7 K/uL (0.0-0.7); EOS % 5.1 % (0.0-4.0); HEMOGLOBIN 12.8 g/dL (12.0-18.0); LYMPH # 3.1 K/uL (1.0-4.3); LYMPH % 24.2 % (20.0-40.0); MEAN CELL VOLUME 87.2 fL (80.0-94.0); MEAN CORPUSCULAR HEMOGLOBIN 29.2 pg (27.0-31.0); MEAN CORPUSCULAR HGB CONC 33.5 g/dL (33.0-37.0); MEAN PLATELET VOLUME 7.9 fL (7.2-11.7); MONO # 0.9 K/uL (0.0-0.8); MONO % 6.9 % (0.0-10.0); NEUT # 8.1 K/uL (1.8-7.0); NEUT % 63.3 % (50.0-75.0); NRBC % 0.2 % (0.0-2.0); RBC 4.39 Mil/uL (4.40-5.90); RED CELL DISTRIBUTION WIDTH 13.6 % (11.5-14.5); WHITE BLOOD COUNT 12.9 K/uL (4.8-10.8)
[2018-01-26 07:58] LABS: ALB/GLOB RATIO 1.2 (1.0-2.1); ALBUMIN 4.4 g/dL (3.5-5.0); ALT/SGPT 52 U/L (21-72); AST/SGOT 30 U/L (17-59); BLOOD UREA NITROGEN 17 mg/dL (9-20); CALCIUM 9.5 mg/dl (8.6-10.4); GFR AFRICAN-AMERICAN > 60; GFR NON-AFRICAN AMERICAN > 60
[2018-01-26] MEDS: Pantoprazole 40 mg EC Tab PO SCH (09:02)
[2018-01-26] MEDS: Lactobacillus Acidophilus 500 MU Cap PO SCH ×2 (09:02→17:57)
--- NOTE | 2018-01-26 13:14 | CP.PCM.PN ---
<Abbie Briseno - Last Filed: 01/26/18 15:30> Subjective - Date & Time of Evaluation Date of Evaluation: 01/26/18 Time of Evaluation: 09:45 - Subjective Subjective: Patient examined at bedside. No acute events overnight. Per nursing patient reports he is in a lot of pain but refusing pain meds. Patient again reports he is unaware he should be asking for pain medication when nursing comes to evaluate his pain. Patient reports he understands and will now ask for it regularly as needed. Patient reports he continues to have sharp and throbbing pain in his left great toe, worse with movement. He reports he attempted to stand yesterday evening, but pain prevented him from doing so. Patient denies chest pain, SOB abd pain, nausea, diarrhea. Patient expressed he would like to be discharged home. Objective - Vital Signs/Intake and Output Vital Signs (last 24 hours): Temp Pulse Resp BP Pulse Ox 98.7 F 81 20 129/86 96 01/26/18 07:51 01/26/18 07:51 01/26/18 07:51 01/26/18 07:51 01/26/18 07:51 Intake and Output: 01/26/18 01/26/18 06:59 18:59 Intake Total 600 Balance 600 - Medications Medications: Current Medications Heparin Sodium (Porcine) (Heparin) 5,000 units SC Q8 [facility] Last Admin: 01/26/18 05:20 Dose: 5,000 units Vancomycin HCl 1 gm/ Sodium (Chloride) 200 mls @ 166.7 mls/hr IVPB Q12H [facility] PRN Reason: Protocol Last Admin: 01/26/18 06:30 Dose: 166.7 mls/hr Meropenem 1 gm/ Sodium (Chloride) 100 mls @ 100 mls/hr IVPB Q8H [facility] PRN Reason: Protocol Last Admin: 01/26/18 05:20 Dose: 100 mls/hr Ketorolac Tromethamine (Toradol) 15 mg IVP Q6 PRN PRN Reason: Pain, moderate (4-7) Last Admin: 01/26/18 08:59 Dose: 15 mg Lactobacillus Acidophilus (Bacid Acidophilus) 1 cap PO BID [facility] Last Admin: 01/26/18 09:02 Dose: 1 cap Ondansetron HCl (Zofran Inj) 4 mg IVP Q6 PRN PRN Reason: Nausea/Vomiting Pantoprazole Sodium (Protonix Ec Tab) 40 mg PO DAILY [facility] Last Admin: 01/26/18 09:02 Dose: 40 mg - Labs Labs: 01/26/18 07:21 01/26/18 07:21 PT 12.9 SECONDS (9.7-12.2) H 01/21/18 03:22 INR 1.2 01/21/18 03:22 APTT 35 SECONDS (21-34) H 01/21/18 03:22 - Constitutional Appears: Non-toxic, No Acute Distress - Head Exam Head Exam: ATRAUMATIC, NORMAL INSPECTION, NORMOCEPHALIC - Eye Exam Eye Exam: EOMI, Normal appearance - ENT Exam ENT Exam: Mucous Membranes Moist, Normal Exam - Neck Exam Neck Exam: Normal Inspection - Respiratory Exam Respiratory Exam: Clear to Ausculation Bilateral, NORMAL BREATHING PATTERN. absent: Rhonchi, Wheezes - Cardiovascular Exam Cardiovascular Exam: REGULAR RHYTHM, RRR, +S1, +S2. absent: Tachycardia, Murmur - GI/Abdominal Exam GI & Abdominal Exam: Soft, Normal Bowel Sounds. absent: Distended, Tenderness - Extremities Exam Extremities Exam: Normal Capillary Refill. absent: Calf Tenderness, Normal Inspection (left foot wrapped in gauze), Pedal Edema - Neurological Exam Neurological Exam: Alert, Awake, Oriented x3. absent: Motor Sensory Deficit - Psychiatric Exam Psychiatric exam: Normal Affect, Normal Mood - Skin Skin Exam: Intact, Normal Color, Warm Assessment and Plan - Assessment and Plan (Free Text) Assessment: 52 yo m w/ no prior medical history presents with pain/swelling of LLE s/p trauma with foreign object(nail). Septic arthritis/Osteomyelitis of 1st MTP joint -CT LLE(01/21) showed large effusion surrounding 1st MTP joint and diffuse soft tissue edema of dorsum of foot. No foreign body identified -MRI LLE(01/21) suspects septic joint vs osteomyelitis of 1st MTP joint -[facility] [place] confirmed pt received Tdap -Toradol 15mg Q6 PRN pain -joint aspirated by podiatry -aspirate Pseudomonas + -ESR 68--> 103 -PICC(01/24) -vanco 1g Q12(01/21) to cover MRSA -merrem 1g Q8(01/24) for Pseudomonas, Cipro lower AVA -PT eval and tx -ice packs to medial aspect of left foot q4, elevation -Podiatry consult Dr. Carter -ID consult Dr. Long Nausea/vomiting -zofran 4mg Q6 PRN Ppx -protonix 40 PO -heparin 5000 sc Q8 -Lactobacillus PO Dispo: Pt on IV Abx, f/u w/ case picker to see if eligible for outpatient Abx per worker's comp <Hugo Infante - Last Filed: 01/26/18 18:17> Objective - Vital Signs/Intake and Output Vital Signs (last 24 hours): Temp Pulse Resp BP Pulse Ox 98.2 F 76 20 130/88 95 01/26/18 15:42 01/26/18 15:42 01/26/18 15:42 01/26/18 15:42 01/26/18 15:42 Intake and Output: 01/26/18 01/26/18 06:59 18:59 Intake Total 600 Balance 600 - Medications Medications: Current Medications Heparin Sodium (Porcine) (Heparin) 5,000 units SC Q8 [facility] Last Admin: 01/26/18 13:26 Dose: 5,000 units Vancomycin HCl 1 gm/ Sodium (Chloride) 200 mls @ 166.7 mls/hr IVPB Q12H [facility] PRN Reason: Protocol Last Admin: 01/26/18 06:30 Dose: 166.7 mls/hr Meropenem 1 gm/ Sodium (Chloride) 100 mls @ 100 mls/hr IVPB Q8H [facility] PRN Reason: Protocol Last Admin: 01/26/18 13:26 Dose: 100 mls/hr Ketorolac Tromethamine (Toradol) 15 mg IVP Q6 PRN PRN Reason: Pain, moderate (4-7) Last Admin: 01/26/18 15:58 Dose: 15 mg Lactobacillus Acidophilus (Bacid Acidophilus) 1 cap PO BID [facility] Last Admin: 01/26/18 17:57 Dose: 1 cap Ondansetron HCl (Zofran Inj) 4 mg IVP Q6 PRN PRN Reason: Nausea/Vomiting Pantoprazole Sodium (Protonix Ec Tab) 40 mg PO DAILY [facility] Last Admin: 01/26/18 09:02 Dose: 40 mg - Labs Labs: 01/26/18 07:21 01/26/18 07:21 PT 12.9 SECONDS (9.7-12.2) H 01/21/18 03:22 INR 1.2 01/21/18 03:22 APTT 35 SECONDS (21-34) H 01/21/18 03:22 Attending/Attestation - Attestation I have personally seen and examined this patient.: Yes I have fully participated in the care of the patient.: Yes I have reviewed all pertinent clinical information, including history, physical exam and plan: Yes Notes (Text): 01/26/18 18:10 Patient was seen and examined at 1:45 PM 01/26/18 370 A Exam, assessment and plan were gone over with resident Dr. Briseno. Also on ROS: Pain in the Left Toe #1 sharp comes and goes and times is throbbing in nature and explains that is predominantly on dorsal medial surface Also on Exam: NO erythema noted around the Left Toe #1. However the left foot around this toe does appear to be slightly more swollen when compared to the right and slightly warmer. Tender to palpation on the medial dorsal surface around metatarsal head dorsal surface of Left Toe #1 and there is a small pinpoint dark spot on the pedal surface of the Left Toe #1 metatarsal head Joint aspiration 01/21/18 was positive for Pseudomonas that was sensitive to Meropenem which the patient is currently on at [address]m IV Q8H ID Dr. Long wanted to also cover for Staph therefore he also on Vancomycin 1 gram IV Q12H with goal Trough of 15 to 20. F/U Vanco Trough 01/26/18 at 6:30 PM Blood culture 01/22/18 is negative to date Right Arm PICC Line placed 01/24/18 Patient to keep the left foot elevated while in bed and to apply ice packs to the area as needed (it was demonstrated to him how to active the ice pack and how to apply it). The ice pack was applied again today 01/26/18 at the time of my exam. Podiatry Team Dr. Marquez will be taking patient to OR for I&D on Wednesday01/31/18. Chest X Ray after PICC line placement did NOT show any infiltrates. Repeat EKG ordered 01/26/18 as one done on admission showed Sinus Tachycardia. As long blood culture 01/22/18 continues to remain negative and no issues with repeat EKG, then patient should be cleared medically for the I&D on 01/31/18. If so please make patient NPO after midnight on Wednesday01/30/18 and HOLD the Heparin on night of 01/30/18. Hugo Infante D.O.
--- NOTE | 2018-01-26 13:37 | CARD ---
APPROVED REPORT Date of service: 01/21/2018 EKG Measurement Heart [id number] <Conclusion> Sinus tachycardia Possible Left atrial enlargement Nonspecific T wave abnormality Abnormal ECG
--- NOTE | 2018-01-26 14:09 | CP.PCM.PN ---
Subjective - Date & Time of Evaluation Date of Evaluation: 01/26/18 Time of Evaluation: 09:00 - Subjective Subjective: Podiatry Progress Note- Dr. Raul LoganM seen and evaluated at bedside for left foot 1st MPJ joint effusion/abscess secondary to puncture wound that has healed. Patient is seen resting comfortably in bed, AA0x3, and in NAD. Patient expresses moderate pain to the left foot at the location of entire 1st MPJ rating the pain 9/10 at the moment. Patient reports that pain has improved since the emergency room however still has moderate pain to the foot. Reports pain is worse when he is ambulating. Patient reports he tries to avoid the front of the foot but still experiences pain after ambulating. Denies any nausea, fever, shortness of breath, chest pains or chills. Patient reports that he feels sweaty at night. Objective - Vital Signs/Intake and Output Vital Signs (last 24 hours): Temp Pulse Resp BP Pulse Ox 98.7 F 81 20 129/86 96 01/26/18 07:51 01/26/18 07:51 01/26/18 07:51 01/26/18 07:51 01/26/18 07:51 Intake and Output: 01/26/18 01/26/18 06:59 18:59 Intake Total 600 Balance 600 - Medications Medications: Current Medications Heparin Sodium (Porcine) (Heparin) 5,000 units SC Q8 [facility] Last Admin: 01/26/18 13:26 Dose: 5,000 units Vancomycin HCl 1 gm/ Sodium (Chloride) 200 mls @ 166.7 mls/hr IVPB Q12H [facility] PRN Reason: Protocol Last Admin: 01/26/18 06:30 Dose: 166.7 mls/hr Meropenem 1 gm/ Sodium (Chloride) 100 mls @ 100 mls/hr IVPB Q8H [facility] PRN Reason: Protocol Last Admin: 01/26/18 13:26 Dose: 100 mls/hr Ketorolac Tromethamine (Toradol) 15 mg IVP Q6 PRN PRN Reason: Pain, moderate (4-7) Last Admin: 01/26/18 08:59 Dose: 15 mg Lactobacillus Acidophilus (Bacid Acidophilus) 1 cap PO BID [facility] Last Admin: 01/26/18 09:02 Dose: 1 cap Ondansetron HCl (Zofran Inj) 4 mg IVP Q6 PRN PRN Reason: Nausea/Vomiting Pantoprazole Sodium (Protonix Ec Tab) 40 mg PO DAILY [facility] Last Admin: 01/26/18 09:02 Dose: 40 mg - Labs Labs: 01/26/18 07:21 01/26/18 07:21 PT 12.9 SECONDS (9.7-12.2) H 01/21/18 03:22 INR 1.2 01/21/18 03:22 APTT 35 SECONDS (21-34) H 01/21/18 03:22 - Constitutional Appears: Well, Non-toxic, No Acute Distress - Extremities Exam Extremities Exam: absent: Calf Tenderness Additional comments: Left lower extremity focused exam: Vasc: DP/PT pulses 2/4. Temperature gradient warm to warm. CFT < 3 sec to all digits. Nonpitting pedal edema noted to entirety of forefoot, increased around 1st MPJ and entire 1st ray. Derm: No erythema noted; no streaking, Fully healed puncture wound noted to plantar aspect of 1st MPJ. No open lesions, no ecchymosis, no drainage, no fluctuance, no abscess, increase warmth noted to the site of pain. Neuro: Protective sensation grossly intact Ortho: Moderate to severe pain noted upon palpation of left foot medial aspect including hallux and surrounding sites of 1st MPJ. Increaes pain and tenderness elicited upon mobilization and distraction of 1st MPJ. AROM 1-5 digit WNL - Neurological Exam Neurological Exam: Alert, Awake, Oriented x3 - Psychiatric Exam Psychiatric exam: Normal Affect, Normal Mood Assessment and Plan - Assessment and Plan (Free Text) Assessment: 52M with left foot 1st MPJ joint effusion/ abscess, secondary to puncture wound Plan: Pt seen and evaluated at bedside Discussed plan with attending Dr. Carter Chart, labs and vitals reviewed; WBC trending up 12.9 (01/26/18) ESR 68 (01/22/18), ESR 106 (01/25/18) LLE CT reveals fluid collection at 1st MPJ LLE MRI reveals abscess/joint effusion at 1st MPJ with reactive signal changes noted to base of proximal phalanx as well as 1st metatarsal head- acute infectious changes; osteomyelitis or septic joint cannot be excluded Joint aspiration culture-pseudomonas aeruginosa Continue current abx regimen of IV Meropenem and Vancomycin Continue current pain management as per primary team C/w PT. WBAT to the heels to the left foot Due to patient's persist pain and swelling, podiatry plans on bringing patient to the OR for incision amd drainage of left foot Plans for operation room Wednesday at 11AM with Dr. Carter for incision and drainage of left foot deep abscess Please provide medical clearance, Thank you Will continue to follow patient
--- NOTE | 2018-01-26 21:34 | CP.PCM.PN ---
Subjective - Date & Time of Evaluation Date of Evaluation: 01/26/18 Time of Evaluation: 19:00 - Subjective Subjective: dictated Objective - Vital Signs/Intake and Output Vital Signs (last 24 hours): Temp Pulse Resp BP Pulse Ox 98.2 F 76 20 130/88 95 01/26/18 15:42 01/26/18 15:42 01/26/18 15:42 01/26/18 15:42 01/26/18 15:42 - Medications Medications: Current Medications Heparin Sodium (Porcine) (Heparin) 5,000 units SC Q8 [facility] Stop: 01/30/18 22:00 Last Admin: 01/26/18 13:26 Dose: 5,000 units Vancomycin HCl 1 gm/ Sodium (Chloride) 200 mls @ 166.7 mls/hr IVPB Q12H [facility] PRN Reason: Protocol Last Admin: 01/26/18 19:50 Dose: 166.7 mls/hr Meropenem 1 gm/ Sodium (Chloride) 100 mls @ 100 mls/hr IVPB Q8H [facility] PRN Reason: Protocol Last Admin: 01/26/18 13:26 Dose: 100 mls/hr Ketorolac Tromethamine (Toradol) 15 mg IVP Q6 PRN PRN Reason: Pain, moderate (4-7) Last Admin: 01/26/18 15:58 Dose: 15 mg Lactobacillus Acidophilus (Bacid Acidophilus) 1 cap PO BID [facility] Last Admin: 01/26/18 17:57 Dose: 1 cap Ondansetron HCl (Zofran Inj) 4 mg IVP Q6 PRN PRN Reason: Nausea/Vomiting Pantoprazole Sodium (Protonix Ec Tab) 40 mg PO DAILY [facility] Last Admin: 01/26/18 09:02 Dose: 40 mg - Labs Labs: 01/26/18 07:21 01/26/18 07:21 PT 12.9 SECONDS (9.7-12.2) H 01/21/18 03:22 INR 1.2 01/21/18 03:22 APTT 35 SECONDS (21-34) H 01/21/18 03:22
--- NOTE | 2018-01-27 03:30 | PN ---
Copied To: Elfego Long MD Attending MD: Elefgo Long MD DATE: 01/26/2018 SUBJECTIVE: This patient was seen today, and he continues to have pain in the left foot. He was getting some ice pack to his left foot, and he has now got a PICC line in his right arm, and the patient has been getting IV antibiotics as advised and denies any other complaints. He is due to have surgery which probably will be done by the bacteriologist dairy, and at this time, the patient except for the pain has no nausea, no chest pain, no shortness of breath. PHYSICAL EXAMINATION: VITAL SIGNS: T-max is today 98.2, pulse is 76, blood pressure remains on the high side at 130/88, respirations are 20. HEENT: Head is atraumatic, normocephalic. NECK: Supple. LUNGS: Clear. HEART: S1 and S2 are regular. ABDOMEN: Soft, nontender, flabby. EXTREMITIES: Left foot remains with a dressing and is swollen. We can see the edema on the leg and the foot. LABORATORY DATA: White count is 12.9, hemoglobin 12.8, hematocrit is 38.2, platelet count is 332,000. Wound came out to be pseudomonas as expected as he had a puncture wound and it is sensitive to meropenem and to Cipro. He is on medications. He is already on Merrem and vancomycin, so we will continue both of these at this time. He needs the vancomycin peak and trough to adjust the dosage which was ordered before, so maybe there is a report there. . Random was 6.4, so he was restarted. I think we need to increase the dose, and I want to see it again. We will adjust the dosage according to that. ASSESSMENT AND PLAN: The impression is that the patient has pseudomonas infection in the foot, and he has osteomyelitis, and he needs debridement. He also needs intravenous antibiotics for 6 weeks. Elfego Long MD
[2018-01-27] MEDS: Meropenem 1 GM in Sodium Chloride 0.9% 100 ML IVPB SCH ×2 (05:10→13:50)
[2018-01-27] MEDS: Vancomycin 1 GM in Sodium Chloride 0.9% 200 ML IVPB SCH (06:22)
--- NOTE | 2018-01-27 07:01 | CP.PCM.PN ---
Subjective - Date & Time of Evaluation Date of Evaluation: 01/27/18 Objective - Vital Signs/Intake and Output Vital Signs (last 24 hours): Temp Pulse Resp BP Pulse Ox 98.4 F 73 20 137/85 96 01/26/18 23:07 01/26/18 23:07 01/26/18 23:07 01/26/18 23:07 01/26/18 23:07 Intake and Output: 01/27/18 01/27/18 06:59 18:59 Intake Total 500 Balance 500 - Medications Medications: Current Medications Heparin Sodium (Porcine) (Heparin) 5,000 units SC Q8 [facility] Stop: 01/30/18 22:00 Last Admin: 01/27/18 05:11 Dose: 5,000 units Vancomycin HCl 1 gm/ Sodium (Chloride) 200 mls @ 166.7 mls/hr IVPB Q12H [facility] PRN Reason: Protocol Last Admin: 01/27/18 06:22 Dose: 166.7 mls/hr Meropenem 1 gm/ Sodium (Chloride) 100 mls @ 100 mls/hr IVPB Q8H [facility] PRN Reason: Protocol Last Admin: 01/27/18 05:10 Dose: 100 mls/hr Ketorolac Tromethamine (Toradol) 15 mg IVP Q6 PRN PRN Reason: Pain, moderate (4-7) Last Admin: 01/26/18 23:03 Dose: 15 mg Lactobacillus Acidophilus (Bacid Acidophilus) 1 cap PO BID [facility] Last Admin: 01/26/18 17:57 Dose: 1 cap Ondansetron HCl (Zofran Inj) 4 mg IVP Q6 PRN PRN Reason: Nausea/Vomiting Pantoprazole Sodium (Protonix Ec Tab) 40 mg PO DAILY [facility] Last Admin: 01/26/18 09:02 Dose: 40 mg - Labs Labs: 01/26/18 07:21 01/26/18 07:21 PT 12.9 SECONDS (9.7-12.2) H 01/21/18 03:22 INR 1.2 01/21/18 03:22 APTT 35 SECONDS (21-34) H 01/21/18 03:22
[2018-01-27] MEDS: Pantoprazole 40 mg EC Tab PO SCH (09:19)
[2018-01-27] MEDS: Lactobacillus Acidophilus 500 MU Cap PO SCH ×2 (09:19→18:07)
[2018-01-27 09:52] VITALS: PULSE 76; O2SAT 95
--- NOTE | 2018-01-27 14:11 | CP.PCM.PN ---
Subjective - Date & Time of Evaluation Date of Evaluation: 01/27/18 Time of Evaluation: 08:00 - Subjective Subjective: Podiatry Progress Note- Dr. Raul LoganM seen and evaluated at bedside for left foot 1st MPJ joint effusion/abscess secondary to puncture wound that has healed. Patient is seen resting comfortably in bed, AA0x3, and in NAD. Describes the same throbbing pain to the medial aspect of left foot. Reports has been ambulating and working with physical therapy. Patient reports that pain is 8/10 after ambulating or with pressure. Patient reports the pain is better with pain medication but once pain medication wears off, the pain becomes unbearable. Denies of numbness and tingling . Reports icing when resting in bed which does help with the pain. Denies any nausea, fever, shortness of breath, chest pains or chills. Patient reports that he feels sweaty at night. Objective - Vital Signs/Intake and Output Vital Signs (last 24 hours): Temp Pulse Resp BP Pulse Ox 98.1 F 76 20 132/98 H 95 01/27/18 08:00 01/27/18 08:00 01/27/18 08:00 01/27/18 08:00 01/27/18 08:00 Intake and Output: 01/27/18 01/27/18 06:59 18:59 Intake Total 500 600 Balance 500 600 - Medications Medications: Current Medications Heparin Sodium (Porcine) (Heparin) 5,000 units SC Q8 [facility] Stop: 01/30/18 22:00 Last Admin: 01/27/18 13:32 Dose: 5,000 units Vancomycin HCl 1 gm/ Sodium (Chloride) 200 mls @ 166.7 mls/hr IVPB Q12H [facility] PRN Reason: Protocol Last Admin: 01/27/18 06:22 Dose: 166.7 mls/hr Meropenem 1 gm/ Sodium (Chloride) 100 mls @ 100 mls/hr IVPB Q8H [facility] PRN Reason: Protocol Last Admin: 01/27/18 13:50 Dose: 100 mls/hr Ketorolac Tromethamine (Toradol) 15 mg IVP Q6 PRN PRN Reason: Pain, moderate (4-7) Last Admin: 01/27/18 13:43 Dose: 15 mg Lactobacillus Acidophilus (Bacid Acidophilus) 1 cap PO BID [facility] Last Admin: 01/27/18 09:19 Dose: 1 cap Ondansetron HCl (Zofran Inj) 4 mg IVP Q6 PRN PRN Reason: Nausea/Vomiting Pantoprazole Sodium (Protonix Ec Tab) 40 mg PO DAILY [facility] Last Admin: 01/27/18 09:19 Dose: 40 mg - Labs Labs: 01/26/18 07:21 01/26/18 07:21 PT 12.9 SECONDS (9.7-12.2) H 01/21/18 03:22 INR 1.2 01/21/18 03:22 APTT 35 SECONDS (21-34) H 01/21/18 03:22 - Constitutional Appears: Well, Non-toxic, No Acute Distress - Extremities Exam Extremities Exam: absent: Calf Tenderness Additional comments: Left lower extremity focused exam: Vasc: DP/PT pulses 2/4. Temperature gradient warm to warm. CFT < 3 sec to all digits. Nonpitting pedal edema noted to entirety of forefoot, increased around 1st MPJ and entire 1st ray. Derm: No erythema noted; no streaking, Fully healed puncture wound noted to plantar aspect of 1st MPJ. No open lesions, no ecchymosis, no drainage, no fluctuance, no abscess, increase warmth noted to the site of pain. Neuro: Protective sensation grossly intact Ortho: Moderate to severe pain noted upon palpation of left foot medial aspect including hallux and surrounding sites of 1st MPJ. Increase pain and tenderness elicited upon mobilization and distraction of 1st MPJ. AROM 1-5 digit WNL - Psychiatric Exam Psychiatric exam: Normal Affect, Normal Mood Assessment and Plan - Assessment and Plan (Free Text) Assessment: 52M with left foot 1st MPJ joint effusion/ abscess, secondary to puncture wound Plan: Pt seen and evaluated at bedside Discussed plan with attending Dr. Carter Chart, labs and vitals reviewed; WBC trended up 12.9 (01/26/18) ESR 68 (01/22/18), ESR 106 (01/25/18) LLE CT reveals fluid collection at 1st MPJ LLE MRI reveals abscess/joint effusion at 1st MPJ with reactive signal changes noted to base of proximal phalanx as well as 1st metatarsal head- acute infectious changes; osteomyelitis or septic joint cannot be excluded Joint aspiration culture-pseudomonas aeruginosa Continue current abx regimen of IV Meropenem and Vancomycin Continue current pain management as per primary team C/w PT. WBAT to the heels to the left foot Due to patient's persist pain and swelling, podiatry plans on bringing patient to the OR for incision and drainage of left foot Plans for operation room Wednesday at 11AM with Dr. Carter for incision and drainage of left foot deep abscess At the rehab, please change dressing daily. Cleansed site with betadine, apply gauze, abd, and kerlix to the left foot. C/w abx per ID Patient must continue to WBAT to the left heel in surgical shoe Continue to ice and elevate while in bed Please hold anticogulation appropriately prior to surgery Nothing to eat or drink midnight Wednesday (01/30/18) Please provide medical clearance
[2018-01-27 17:40] VITALS: BP 127/86; TEMP 98.3
--- NOTE | 2018-01-28 06:17 | CP.PCM.DIS ---
Provider - Provider Date of Admission: 01/21/18 06:32 Attending physician: Miri Armstrong DO Primary care physician: Non [facility] Provider Consults: Dr. Ethan Carter Time Spent in preparation of Discharge (in minutes): 29 Diagnosis - Discharge Diagnosis (1) Abscess of left great toe Status: Acute Comment: LLE cellulitis was evaluated in ED with CT and MRI. No acute fracture or foreign body were identified, however MRI finding were concerning for underlying septic arthritis with developing acute osteomylitis. Podiatry was consulted. The 1st MTP was aspirated and culture was positive for Pseudomonas. Patient began antibiotic treatment with Vanco and Merrem to be continued for 6 weeks. Patient is to return Wednesday for I&D with podiatry. Hospital Course - Lab Results Lab Results: Micro Results 01/22/18 19:30 Blood-Venous Blood Culture - Final NO GROWTH AFTER 5 DAYS 01/22/18 19:30 Blood-Venous Gram Stain - Final TEST NOT PERFORMED 01/22/18 19:00 Blood-Venous Blood Culture - Final NO GROWTH AFTER 5 DAYS 01/22/18 19:00 Blood-Venous Gram Stain - Final TEST NOT PERFORMED 01/21/18 18:51 Foot - Left Gram Stain - Final 01/21/18 18:51 Foot - Left Wound Culture - Final Pseudomonas Aeruginosa Most Recent Lab Values WBC 12.9 K/uL (4.8-10.8) H 01/26/18 07:21 RBC 4.39 Mil/uL (4.40-5.90) L 01/26/18 07:21 Hgb 12.8 g/dL (12.0-18.0) 01/26/18 07:21 Hct 38.3 % (35.0-51.0) 01/26/18 07:21 MCV 87.2 fL (80.0-94.0) 01/26/18 07:21 MCH 29.2 pg (27.0-31.0) 01/26/18 07:21 MCHC 33.5 g/dL (33.0-37.0) 01/26/18 07:21 RDW 13.6 % (11.5-14.5) 01/26/18 07:21 Plt Count 332 K/uL (130-400) 01/26/18 07:21 MPV 7.9 fL (7.2-11.7) 01/26/18 07:21 Neut % (Auto) 63.3 % (50.0-75.0) 01/26/18 07:21 Lymph % (Auto) 24.2 % (20.0-40.0) 01/26/18 07:21 Christian % (Auto) 6.9 % (0.0-10.0) 01/26/18 07:21 Eos % (Auto) 5.1 % (0.0-4.0) H 01/26/18 07:21 Baso % (Auto) 0.5 % (0.0-2.0) 01/26/18 07:21 Neut # (Auto) 8.1 K/uL (1.8-7.0) H 01/26/18 07:21 Lymph # (Auto) 3.1 K/uL (1.0-4.3) 01/26/18 07:21 Christian # (Auto) 0.9 K/uL (0.0-0.8) H 01/26/18 07:21 Eos # (Auto) 0.7 K/uL (0.0-0.7) 01/26/18 07:21 Baso # (Auto) 0.1 K/uL (0.0-0.2) 01/26/18 07:21 ESR 106 mm/hr (0-15) H 01/25/18 07:00 PT 12.9 SECONDS (9.7-12.2) H 01/21/18 03:22 INR 1.2 01/21/18 03:22 APTT 35 SECONDS (21-34) H 01/21/18 03:22 pO2 44 mm/Hg (30-55) 01/21/18 03:46 VBG pH 7.39 (7.32-7.43) 01/21/18 03:46 VBG pCO2 42 mmHg (40-60) 01/21/18 03:46 VBG HCO3 24.7 mmol/L 01/21/18 03:46 VBG Total CO2 26.7 mmol/L (22-28) 01/21/18 03:46 VBG O2 Sat (Calc) 83.2 % (40-65) H 01/21/18 03:46 VBG Base Excess 0.3 mmol/L (0.0-2.0) 01/21/18 03:46 VBG Potassium 3.6 mmol/L (3.6-5.2) 01/21/18 03:46 Sodium 141.0 mmol/l (132-148) 01/21/18 03:46 Chloride 109.0 mmol/L (98-107) H 01/21/18 03:46 Glucose 107 mg/dl (75-110) 01/21/18 03:46 Lactate 0.9 mmol/L (0.7-2.1) 01/21/18 03:46 Sodium 144 mmol/L (132-148) 01/26/18 07:21 Potassium 4.1 mmol/L (3.6-5.2) 01/26/18 07:21 Chloride 105 mmol/L (98-107) 01/26/18 07:21 Carbon Dioxide 28 mmol/L (22-30) 01/26/18 07:21 Anion Gap 15 (10-20) 01/26/18 07:21 BUN 17 mg/dL (9-20) 01/26/18 07:21 Creatinine 1.0 mg/dL (0.8-1.5) 01/26/18 07:21 Est GFR ( Amer) > 60 01/26/18 07:21 Est GFR (Non-Af Amer) > 60 01/26/18 07:21 POC Glucose (mg/dL) 87 mg/dL (65-110) 01/27/18 16:51 Random Glucose 93 mg/dL (75-110) 01/26/18 07:21 Hemoglobin A1c 5.7 % (4.2-6.5) 01/25/18 05:11 Calcium 9.5 mg/dl (8.6-10.4) 01/26/18 07:21 Phosphorus 3.7 mg/dL (2.5-4.5) 01/26/18 07:21 Magnesium 2.1 mg/dL (1.6-2.3) 01/26/18 07:21 Total Bilirubin 0.4 mg/dL (0.2-1.3) 01/26/18 07:21 AST 30 U/L (17-59) 01/26/18 07:21 ALT 52 U/L (21-72) 01/26/18 07:21 Alkaline Phosphatase 87 U/L (38-126) 01/26/18 07:21 Total Protein 8.0 g/dL (6.3-8.3) 01/26/18 07:21 Albumin 4.4 g/dL (3.5-5.0) 01/26/18 07:21 Globulin 3.6 gm/dL (2.2-3.9) 01/26/18 07:21 Albumin/Globulin Ratio 1.2 (1.0-2.1) 01/26/18 07:21 Venous Blood Potassium 3.6 mmol/L (3.6-5.2) 01/21/18 03:46 Urine Color Yellow (YELLOW) 01/21/18 04:03 Urine Clarity Clear (Clear) 01/21/18 04:03 Urine pH 5.0 (5.0-8.0) 01/21/18 04:03 Ur Specific Coden 1.020 (1.003-1.030) 01/21/18 04:03 Urine Protein Negative mg/dL (NEGATIVE) 01/21/18 04:03 Urine Glucose (UA) Normal mg/dL (Normal) 01/21/18 04:03 Urine Ketones Negative mg/dL (NEGATIVE) 01/21/18 04:03 Urine Blood Negative (NEGATIVE) 01/21/18 04:03 Urine Nitrate Negative (NEGATIVE) 01/21/18 04:03 Urine Bilirubin Negative (NEGATIVE) 01/21/18 04:03 Urine Urobilinogen Normal mg/dL (0.2-1.0) 01/21/18 04:03 Ur Leukocyte Esterase Neg Graciela/uL (Negative) 01/21/18 04:03 Urine WBC (Auto) < 1 /hpf (0-5) 01/21/18 04:03 Urine RBC (Auto) < 1 /hpf (0-3) 01/21/18 04:03 Ur Squamous Epith Cells < 1 /hpf (0-5) 01/21/18 04:03 Vancomycin Trough 5.8 ug/mL (5.0-10.0) 01/24/18 06:14 Random Vancomycin 7.9 ug/mL 01/27/18 06:58 - Hospital Course Hospital Course: LLE cellulitis was evaluated in ED with CT and MRI. No acute fracture or foreign body were identified, however MRI finding were concerning for underlying septic arthritis with developing acute osteomylitis. Podiatry was consulted. The 1st MTP was aspirated and culture was positive for Pseudomonas. Patient began antibiotic treatment with Vanco and Merrem to be continued for 6 weeks. Patient is to return Wednesday for I&D with podiatry. Discharge Exam - Head Exam Head Exam: ATRAUMATIC, NORMAL INSPECTION, NORMOCEPHALIC - Eye Exam Eye Exam: EOMI, Normal appearance Pupil Exam: NORMAL ACCOMODATION, PERRL - ENT Exam ENT Exam: Mucous Membranes Moist - Neck Exam Neck exam: Full Rom, Normal Inspection - Respiratory Exam Respiratory Exam: Clear to PA & Lateral, NORMAL BREATHING PATTERN, UNREMARKABLE - Cardiovascular Exam Cardiovascular Exam: REGULAR RHYTHM, +S1, +S2. absent: Systolic Murmur - GI/Abdominal Exam GI & Abdominal Exam: Normal Bowel Sounds, Soft, Unremarkable. absent: Distended , Tenderness - Extremities Exam Extremities exam: joint swelling (1st MTP), normal capillary refill, pedal edema (generalized LLE edema from ankle through toes), tenderness (diffuse LLE tenderness), pedal pulses present - Neurological Exam Neurological exam: Alert, CN II-XII Intact, Normal Gait (unable to weight bear) , Oriented x3 - Psychiatric Exam Psychiatric exam: Normal Affect, Normal Mood - Skin Skin Exam: Intact, Normal Color, Warm Discharge Plan - Discharge Medications Prescriptions: Ketorolac [Toradol] 15 mg IVP Q6 PRN 4 Days #16 vial PRN Reason: Pain, Moderate (4-7) Lactobacillus Acidophilus [Bacid Acidophilus] 1 cap PO BID 45 Days #90 cap Meropenem [Merrem IV] 1 gm IVPB Q8H 45 Days vial Pantoprazole [Protonix EC Tab] 40 mg PO DAILY 30 Days #30 ect Vancomycin/0.9 % Sod Chloride [Vanco 1.25 gm/150 ml-0.9% NaCl] 1.25 gm IV Q12 45 Days plast..bag - Follow Up Plan Condition: FAIR Disposition: REHAB FACILITY/REHAB UNIT Instructions: Cellulitis (DC), Cellulitis (GEN) Additional Instructions: Patient is stable to be discharged to sub-acute rehab. Patient is to continue Merrem 1g Q8 and Vanco 1.25g Q12 for a total of 6 wks. Vanco peak and trough are to be drawn tomorrow; peak must be between 30-40 and trough between 10-20. Patient is to continue with all other medications as prescribed. Patient is to return to [facility] Wednesday morning for I&D with podiatry. Patient is to obtain Type and Screen, and PT, INR and PTT within 48hrs of surgery. Patient is to be kept NPO Wednesday after midnight. Patient is advised to elevate leg and use ice packs to affected area 4 times a day. Patient is advised to follow up with PMD within 1 week of discharge. Patient is advised to follow up with podiatry post operatively as recommended. Plan has been discussed and agreed upon with patient. Patient is advised to return to ED with worsening of symptoms. Referrals: Non [facility] Provider, [Primary Care Provider] -
== END 2018-01-27 18:40 | DRG 549 ==
LOC: C.ER 02:30 → SUPCPDRO 02:30 → C.9E 06:32 → C.3T 13:07
PROVIDERS: ADMIT Hospitalist; ATTEND Hospitalist
PROC: 0S9 Lower Joints, Drainage (ICD-10-PCS; principal; 2018-01-21)
PROC: 02HV33Z Insertion of Infusion Device into Superior Vena Cava, Percutaneous Approach (ICD-10-PCS; 2018-01-24)
DX: M00.9 Pyogenic arthritis, unspecified (principal); M86.172 Other acute osteomyelitis, left ankle and foot; L02.612 Cutaneous abscess of left foot; L03.032 Cellulitis of left toe; M25.475 Effusion, left foot; B96.5 Pseudomonas (aeruginosa) (mallei) (pseudomallei) as the cause of diseases classified elsewhere; M20.10 Hallux valgus (acquired), unspecified foot; M65.9 Synovitis and tenosynovitis, unspecified; S91.332A Puncture wound without foreign body, left foot, initial encounter; W45.0XXA Nail entering through skin, initial encounter; Z87.891 Personal history of nicotine dependence

== ENCOUNTER 2018-01-31 07:31 | Day surgery (SDC) | payer OTHER ==
--- NOTE | 2018-01-31 09:46 | CP.SDSHP ---
Same Day Surgery H & P - History Proposed Procedure: Incision and drainage of left foot abscess Pre-Op Diagnosis: Left foot first MPJ abscess - Previous Medical/Surgical History Pain: 8.Very Severe Previous Surgical History: denies - Allergies Allergies: Allergies No Known Allergies Allergy (Verified 01/21/18 02:45) - Current Medications Current Medications: Tylenol and abx through PICC line - Physical Exam Vital Signs: Vital Signs 01/31/18 08:17 Temperature 97.6 F Pulse Rate 86 Respiratory 20 Rate Blood Pressure 133/82 O2 Sat by Pulse 96 Oximetry Neuro: WNL Lungs: WNL GI: WNL - Impression Pt. Evaluated Today:Candidate for Anesthesia & Procedure: Yes - Date & Time Date: 01/31/18 Time: 09:46 Short Stay Discharge - Short Stay Discharge Admitting Diagnosis/Reason for Visit: CUTANEOUS ABSCESS LEFT FOOT Disposition: REHAB FACILITY/REHAB UNIT Referrals: Radha Carter DPM [Staff Provider] - Additional Instructions (Diet, Activity): Please keep dressing clean dry and intact, do not get wet Elevate and ice the left extremity Please follow up in the podiatry clinic with Dr. Carter within one week
[2018-01-31] MEDS ORDERED: Bupivacaine 0.25% 20 ML INJ IJ ONE (10:53)
[2018-01-31] MEDS ORDERED: Lidocaine Hydrochloride 10 ML INJ ONE (10:53)
[2018-01-31] MEDS ORDERED: Propofol 10 mg/ml Inj (20 ML) ONE (11:00)
[2018-01-31] MEDS ORDERED: Midazolam 2 MG/2 ML VIAL ONE (11:00)
--- NOTE | 2018-01-31 12:01 | PCM.SURG1 ---
Surgeon's Initial Post Op Note - Surgeon's Notes Surgeon: Dr. Carter Apartment Assistant Manager: Dr. Castro PGY [address] Dr. Tubbs PGY 3 Type of Anesthesia: MAC, Local Anesthesia Administered By: Dr. Churchill Pre-Operative Diagnosis: Left foot first MPJ abscess Operative Findings: see dictation. 3-0 vicryl, 4-0 vicryl, 4-0 nylon, 20cc 1:1 1% lido plain and 0.25% marcaine plain Post-Operative Diagnosis: same Operation Performed: Left foot incision and drainage of first MPJ abscess Specimen/Specimens Removed: wound culture first MPJ clean and dirty Estimated Blood Loss: EBL {In ML}: 5 Blood Products Given: N/A Drains Used: No Drains Post-Op Condition: Good Date of Surgery/Procedure: 01/31/18 Time of Surgery/Procedure: 12:00
[2018-01-31] MEDS ORDERED: Oxycodone/Acetaminophen 5/325 mg Tab PO PRN ×2 (12:05)
[2018-01-31] MEDS: HYDROmorphone 0.5 mg/0.5 ml ISec IVP PRN ×2 (12:07→12:30)
[2018-01-31 13:58] VITALS: RESP 18
[2018-01-31 15:55] VITALS: BP 124/84; PULSE 71; TEMP 97.8; O2SAT 95
--- NOTE | 2018-02-02 19:33 | OP ---
Copied To: MARTIR HERNANDEZ MD Attending MD: Radha Carter MD PROCEDURE DATE: 01/31/2018 SURGEON: Radha Carter DPM TELETYPIST: Martir Hernandez MD, PGY1, Dr. Tubbs, PGY3. ANESTHESIA: MAC and local anesthesia. ANESTHESIA ADMINISTERED BY: Bonilla Churchill MD PREOPERATIVE DIAGNOSIS: Left foot first metatarsophalangeal joint abscess. POSTOPERATIVE DIAGNOSIS: Left foot first metatarsophalangeal joint abscess. NAME OF PROCEDURE: Left foot incision and drainage of first metatarsophalangeal joint abscess. INDICATIONS: The patient is a 52-year-old male with the above diagnosis. The patient has exhausted all conservative treatments at this time and now requires surgical intervention. The patient signed the consent after careful explanation of risks, benefits, complications, and alternatives for surgical procedure. No guarantees were given nor implied. N.p.o. status was confirmed prior to taking the patient to the OR. PREPARATION: The patient was brought in to the operating room and placed on the operating room table in the supine position. A time-out was performed for identification of the correct patient and procedure. The patient received a total of 20 mL of 1:1 mixture of 1% lidocaine plain and 0.25% Marcaine plain in Lopez block fashion to the left foot. Once local anesthesia was achieved, the left foot was then prepped and draped in a normal sterile manner. No tourniquet was used during the procedure. DESCRIPTION OF PROCEDURE: Attention was directed to the dorsal aspect of the first metatarsal head of the left foot where approximately 6 cm linear longitudinal incision was made medial and parallel to the tendon of the extensor hallucis longus. The incision was deepened through the subcutaneous tissues using sharp and blunt dissections. Care was taken to identify and retract all vital neurovascular structures. Next, attention was directed plantarly to the level at which, a previous puncture wound was identified. Utilizing a #15 blade, a 1-cm incision was made and deepened to subcutaneous tissues at the first MPJ. A hemostat was used to assess for sinus tract, which was not identified. Deep wound cultures were obtained and sent to Pathology. IrriSept was utilized to wash out the incision sites, and after washout, a clean wound culture was also taken and sent to Pathology. Necrotic and devitalized tissue was excisionally debrided. The surgical site was then closed from deep to superficial tissue utilizing 3-0 Vicryl, 4-0 Vicryl, 4-0 nylon dorsally, and 4-0 nylon plantarly. A gap for drainage was left dorsally and was packed with 1/4-inch Iodoform packing. The incision sites were dressed with Xeroform, sterile gauze, ABD and Timo wrap. POSTOPERATIVE CONDITION: The patient tolerated the anesthesia and procedure well and was escorted to recovery room with vital signs stable and neurovascular status intact to the left foot. This patient will be seen and followed by Dr. Carter while the patient remains in the hospital and will follow up with her at her clinic upon discharge. MARTIR HERNANDEZ MD Radha Carter DPM JAKE
== END 2018-01-31 16:05 ==
LOC: C.SDS 07:31
PROVIDERS: ATTEND Podiatrist Foot & Ankle Surgery
DX: L02.612 Cutaneous abscess of left foot (principal)
CPT/HCPCS: 10061; 87070; 97116; 97161; G8978; G8979; G8980; J1170; J2250; J2405; J2704; J3010